=== PATIENT | male | born 1965 | race Caucasian/White ===

== ENCOUNTER 2024-01-21 02:01 | Inpatient (IN) | payer OTHER, SELFPAY ==
[2024-01-21] VITALS (116 sets, daily range): BP systolic 101–179; BP diastolic 64–108; PULSE 78–121; RESP 13–25; TEMP 36.1–37.4; O2SAT 93–100
--- NOTE | 2024-01-21 02:00 | RT.EKG_ITS ---
APPROVED REPORT Exam: Resting ECG Reason for Exam: lightheaded Patient Location: E HR:110 bpm ECG Measurements Heart Rate 110 AXIS OK 156 P 54 QRSd 99 QRS -36 QT 321 T 15 QTc 435 Conclusion Sinus tachycardia...rate> 99 Left axis deviation...QRS axis (-30,-90) appropriate intervals no ST segment or T wave abnormalities to suggest occlusive M
[2024-01-21 02:36] LABS: BE (Venous) -23 mmol/L (-2-3); HCO3 (Venous) 7 mmol/L (23-28); O2 Sat (Venous) 87 %; TCO2 (Venous) 7 mmol/L (24-29); pCO2 (Venous) 24 mmHg (41-51); pO2 (Venous) 56 mmHg
[2024-01-21 02:40] LABS: Abs Immature Grans 0.09 10^3/uL (0.0-0.06); HCT 48.6 % (40.0-50.0); HGB 16.3 g/dL (13.5-17.5); MCH 28.6 pg (27.0-33.0); MCHC 33.5 % (32.0-36.0); MCV 85 fL (80-95); MPV 8.9 fL (8.0-11.0); Platelet Count 331 10^3/uL (130-400); RDW 12.9 % (11.8-14.1); RDW-SD 39.8 fL; pH (Venous) 7.07 (7.31-7.41)
[2024-01-21] MEDS: Ondansetron 4 MG/2 ML VIAL IVP (02:42)
--- NOTE | 2024-01-21 02:45 | ED.GENADUL_ITS ---
Discharge Plan Disposition Patient Disposition: Admit to [facility] Condition: Critical Discharge Details Chief Complaint: GenMedical Clinical Impression: Ketoacidosis in patient with type 2 diabetes mellitus ED Provider: Patti Murillo Home Meds and New Rx's Prescriptions: No Action aspirin [Ecotrin Low Strength] 81 mg tablet,delayed release (DR/EC) 81 mg PO DAILY pantoprazole [Protonix] 40 mg tablet,delayed release (DR/EC) 40 mg PO DAILY lisinopril 20 mg tablet 20 mg PO DAILY atorvastatin 40 mg tablet 40 mg PO DAILY Rybelsus 7 mg tablet 14 mg PO DAILY glipizide-metformin 2.5-500 mg tablet 2 tab PO BID HPI General Mode of arrival: ambulatory . Date/Time Provider Initiated Documentation: 01/21/24 02:06 . Limitations to Documentation: no limitations . Information obtained by: patient . HPI Narrative: 58yo M with hx HTN, HLD, T2DM, presenting for feeling dehydrated. States he has been very very thirsty for the past 3-4 days. He has had about 2 days of vomiting and diffuse abdominal cramping. Non-bloody non-bilious emesis. He does think he has been keeping 'some' fluids down. He also feels generally fatigued and like it is 'difficult to think'. No fevers, chills, rash, chest pain, shortness of breath, dysuria, hematuria, or other concerns. Otherwise in his usual state of health. Related Data Home Medications ?Medication ?Instructions ?Recorded ?Confirmed aspirin 81 mg tablet,delayed 81 mg PO DAILY 01/21/24 01/21/24 release (Ecotrin Low Strength) atorvastatin 40 mg tablet 40 mg PO DAILY 01/21/24 01/21/24 glipizide 2.5 mg-metformin 500 mg 2 tab PO BID 01/21/24 01/21/24 tablet lisinopril 20 mg tablet 20 mg PO DAILY 01/21/24 01/21/24 pantoprazole 40 mg tablet,delayed 40 mg PO DAILY 01/21/24 01/21/24 release (Protonix) semaglutide 7 mg tablet (Rybelsus) 14 mg PO DAILY 01/21/24 01/21/24 Allergies Allergy/AdvReac Type Severity Reaction Status Date / Time No Known Drug Allergies Allergy Unknown Other (See Verified 01/21/24 02:11 Comment) General Stated Complaint: OD/Poison CESAR: 2 Review of Systems Narrative: see HPI Exam Narrative Exam Narrative: General: Alert, in no acute distress. Head: Normocephalic, atraumatic Neck: Trachea midline, ?Neck supple. ENT: ?Dry MM. Cardiac: ?Tachycardiac, regular, no murmurs appreciated Resp: No respiratory distress. CTAB. Abd: ?Soft, non-distended, nontender : ?No suprapubic tenderness. Extremities: ?No deformities.? No peripheral edema. Neurologic: GCS 15. ? Moves all extremities freely against gravity Course Vital Signs Vital signs: Vital Signs Temperature 36.1 C L 01/21/24 02:05 Pulse 121 H 01/21/24 02:05 Respiratory Rate 23 01/21/24 02:05 Blood Pressure 179/108 H 01/21/24 02:05 Pulse Oximetry 97 01/21/24 02:05 Temperature 36.1 C L 01/21/24 02:05 Temperature Source Temporal Artery Scan 01/21/24 02:05 Pulse 121 H 01/21/24 02:05 Respiratory Rate 21 01/21/24 02:13 Respiratory Effort Normal, Non-Labored 01/21/24 02:13 Respiratory Depth Normal 01/21/24 02:13 Respiratory Pattern Normal 01/21/24 02:13 Blood Pressure 179/108 H 01/21/24 02:05 Blood Pressure Position Sitting 01/21/24 02:05 Pulse Oximetry 97 01/21/24 02:05 Oxygen Delivery Method Room Air 01/21/24 02:05 Oxygen Flow Rate 0 01/21/24 02:05 Lab/Test Results Lab/Test Results: Laboratory Tests Range/Units 01/21/24 02:29 VBG pH (7.31-7.41) 7.07 L* VBG pCO2 (41-51) mmHg 24 L VBG pO2 mmHg 56 VBG HCO3 (23-28) mmol/L 7 L VBG Total CO2 (24-29) mmol/L 7 L VBG O2 Saturation % 87 VBG Base Excess (-2-3) mmol/L -23 L Medical Decision Making 58yo M with hx HTN, HLD, T2DM, presenting for feeling dehydrated and generally unwell. Has felt very thirsty for about 4 days, vomiting started about 2 days ago. Tachycardiac to 120 on arrival, vital signs otherwise reassuring. Afebrile and no infectious symptoms, unlikely sepsis. HR improved to low 100's a the time of assessment without intervention. EKG on arrival sinus tachycardia, appropriate intervals, no ST segment or T wave abnormalities to suggest occlusive [place]. Given IV zofran for nausea while awaiting results of workup. Labs reviewed as below: -VBG with metabolic acidosis with respiratory compensation, pH 7.07. Highly concerning for DKA; will start fluid resus with 1L NS. -CBC with mild leukocytosis at 13 (nonspecific) and no anemia, CMP with elevated anion gap 1t 27, normal Cr, K of 4.5, lactate normal, troponin normal, UA + for ketones and not suggestive of infection. Ethanol and acetaminophen negative, slightly elevated salicylate at 4.4 (pt does take baby aspirin daily, denies taking any additional ASA; unlikely cause of acidosis however will trend with repeat in 3 hours). Overall consistent with euglycemic DKA (glucose borderline at 247); pt denies SGLT-2 inhibitor use, some more atypical with unclear etiology. Denies any toxic alcohol ingestions. No clear provoking factor for DKA. Will start D5 NS c 20meQ of potassium as well as insulin drip. Discussed with [facility] hospitalist Dr. Joshua; pt accepted to medicine service for further workup and management. Bridging orders placed (admission & code status) at hospitalist's request. Patient awaiting transfer to the ICU. Lab Data Lab results reviewed: Yes I reviewed the patient's lab results. Labs: Laboratory Tests Range/Units 01/21/24 01/21/24 01/21/24 02:29 02:50 03:06 WBC (4.4-10.8) 10^3/uL 13.10 H RBC (4.36-5.78) 10^6/uL 5.70 Hgb (13.5-17.5) g/dL 16.3 Hct (40.0-50.0) % 48.6 MCV (80-95) fL 85 MCH (27.0-33.0) pg 28.6 MCHC (32.0-36.0) % 33.5 RDW (11.8-14.1) % 12.9 Plt Count (130-400) 10^3/uL 331 MPV (8.0-11.0) fL 8.9 Immature Gran % % 0.0 Neutrophils % % 84.0 Lymphocytes % % 8.0 Monocytes % % 7.0 Eosinophils % % 1.0 Basophils % % 0.0 Nucleated RBC % (0.0-0.3) % 0.0 Absolute Neutrophils (1.2-6.7) 10^3/uL 11.00 H Absolute Lymphocytes (1.2-3.4) 10^3/uL 1.05 L Absolute Monocytes (0.1-0.8) 10^3/uL 0.92 H Absolute Eosinophils (0.0-0.7) 10^3/uL 0.13 Absolute Basophils (0.0-0.2) 10^3/uL 0.00 RBC Morphology Normal VBG pH (7.31-7.41) 7.07 L* VBG pCO2 (41-51) mmHg 24 L VBG pO2 mmHg 56 VBG HCO3 (23-28) mmol/L 7 L VBG Total CO2 (24-29) mmol/L 7 L VBG O2 Saturation % 87 VBG Base Excess (-2-3) mmol/L -23 L VBG Lactate (0.6-1.4) mmol/L 1.3 Sodium Cancelled 135 L Potassium Cancelled 4.5 Chloride Cancelled 98 Carbon Dioxide Cancelled 9.7 L Anion Gap Cancelled 27.3 H BUN Cancelled 13 Creatinine Cancelled 1.1 Est GFR (CKD-EPI 2020) Cancelled 77.81 Glucose Cancelled 247 H Calcium Cancelled 10.5 H Phosphorus (2.6-4.7) mg/dL 5.1 H Magnesium Cancelled 2.0 Total Bilirubin Cancelled 0.52 AST Cancelled 17 ALT Cancelled 23 Alkaline Phosphatase Cancelled 89 Troponin I (<or=76) ng/L 6 Total Protein Cancelled 9.3 H Albumin Cancelled 5.0 Urine Color (Yellow) Yellow Urine Clarity (Clear) Clear Urine pH (5-8) 5.5 Ur Specific [place] (1.005-1.025) >= 1.030 H Urine Protein (Neg-Trace) mg/dL 30 H Urine Ketones (Negative) mg/dL 80 H Urine Blood (Negative) Trace-intact H Urine Nitrite (Negative) Negative Urine Bilirubin (Negative) Negative Urine Urobilinogen (Up to 0.2) mg/dL 0.2 Ur Leukocyte Esterase (Negative) Negative Urine RBC (0-2) HPF 3-5 H Urine WBC (0-5) HPF Negative Ur Epithelial Cells (Negative) HPF Rare Urine Crystals (Negative) HPF Negative Urine Bacteria (Negative) HPF Rare Urine Casts (Negative) LPF Negative Urine Mucus (Negative) Negative Ur Culture Indicated? No Urine Glucose (Negative) mg/dL 250 H Salicylates (<2.8) mg/dL 4.4 Acetaminophen (10-30) ug/mL < 2 Ethyl Alcohol (<10) mg/dL < 3.0 Range/Units 01/21/24 03:45 WBC (4.4-10.8) 10^3/uL RBC (4.36-5.78) 10^6/uL Hgb (13.5-17.5) g/dL Hct (40.0-50.0) % MCV (80-95) fL MCH (27.0-33.0) pg MCHC (32.0-36.0) % RDW (11.8-14.1) % Plt Count (130-400) 10^3/uL MPV (8.0-11.0) fL Immature Gran % % Neutrophils % % Lymphocytes % % Monocytes % % Eosinophils % % Basophils % % Nucleated RBC % (0.0-0.3) % Absolute Neutrophils (1.2-6.7) 10^3/uL Absolute Lymphocytes (1.2-3.4) 10^3/uL Absolute Monocytes (0.1-0.8) 10^3/uL Absolute Eosinophils (0.0-0.7) 10^3/uL Absolute Basophils (0.0-0.2) 10^3/uL RBC Morphology VBG pH (7.31-7.41) VBG pCO2 (41-51) mmHg VBG pO2 mmHg VBG HCO3 (23-28) mmol/L VBG Total CO2 (24-29) mmol/L VBG O2 Saturation % VBG Base Excess (-2-3) mmol/L VBG Lactate (0.6-1.4) mmol/L Sodium Cancelled Potassium Cancelled Chloride Cancelled Carbon Dioxide Cancelled Anion Gap Cancelled BUN Cancelled Creatinine Cancelled Est GFR (CKD-EPI 2020) Cancelled Glucose Cancelled Calcium Cancelled Phosphorus (2.6-4.7) mg/dL Magnesium Total Bilirubin AST ALT Alkaline Phosphatase Troponin I (<or=76) ng/L Total Protein Albumin Urine Color (Yellow) Urine Clarity (Clear) Urine pH (5-8) Ur Specific [place] (1.005-1.025) Urine Protein (Neg-Trace) mg/dL Urine Ketones (Negative) mg/dL Urine Blood (Negative) Urine Nitrite (Negative) Urine Bilirubin (Negative) Urine Urobilinogen (Up to 0.2) mg/dL Ur Leukocyte Esterase (Negative) Urine RBC (0-2) HPF Urine WBC (0-5) HPF Ur Epithelial Cells (Negative) HPF Urine Crystals (Negative) HPF Urine Bacteria (Negative) HPF Urine Casts (Negative) LPF Urine Mucus (Negative) Ur Culture Indicated? Urine Glucose (Negative) mg/dL Salicylates (<2.8) mg/dL Acetaminophen (10-30) ug/mL Ethyl Alcohol (<10) mg/dL Quality:[facility] Health Related Social Needs: No Data to Display Critical Care Time Critical Care Time Critical Care Time: Yes Total Critical Care Time: 31 Attestation: Due to a high probability of clinically significant, life threatening deterioration, the patient required my highest level of preparedness to intervene emergently and I personally spent this critical care time directly and personally managing the patient. This critical care time included obtaining a history; examining the patient; pulse oximetry; ordering and review of studies; arranging urgent treatment with development of a management plan; evaluation of patient's response to treatment; frequent reassessment; and, discussions with other providers. This critical care time was performed to assess and manage the high probability of imminent, life-threatening deterioration that could result in multi-organ failure. It was exclusive of separately billable procedures and treating other patients? PFSH All Active Problems (Updated 01/21/24 @ 05:04 by Patti Murillo MD) Ketoacidosis in patient with type 2 diabetes mellitus (Acute) Social History Smoking/Tobacco Use Status: Current-Occasional Tobacco Type: smokeless tobacco Smoking risk assessment performed?: Yes Alcohol Intake: current Alcohol Intake frequency: a few times a month Alcohol type: beer Drug use: Never Substance use type: does not use PAWSS Have you Been Recently Intoxicated or Drunk Within the Last 30 days?: No Have you Ever Experienced Previous Episodes of Alcohol Withdrawal?: No Have you ever Experienced Withdrawal Seizures?: No Have you ever Experienced Delirium Tremens(DT)s?: No Have you ever undergone Alcohol Rehabilitation Treatment (i.e, inpt ot outpatient treatment programs)?: No Have you ever Experienced Blackouts?: No Have you ever Combined Alcohol with other Downers within the last 90 days?: No Have you ever Combined Alcohol with any other Substance of Abuse during the last 90 days?: No Positive Blood Alcohol level on Presentation? [PCS.BAL]: No Evidence of Increased Autonomic Activity (i.e. HR>120, tremor, sweating, agita tion, nausea)?: No Result: 0
[2024-01-21 02:55] LABS: Bilirubin Negative (Negative); Blood Trace-intact (Negative); Clarity Clear (Clear); Glucose 250 mg/dL (Negative); Ketones 80 mg/dL (Negative); Leukocyte Esterase Negative (Negative); Nitrite Negative (Negative); Specific Gravity >= 1.030 (1.005-1.025); Urobilinogen 0.2 mg/dL (Up to 0.2); pH 5.5 (5-8)
[2024-01-21 02:56] LABS: Absolute Eosinophil Count 0.13 10^3/uL (0.0-0.7); Absolute Lymphocyte Count 1.05 10^3/uL (1.2-3.4); Absolute Monocyte Count 0.92 10^3/uL (0.1-0.8); Diff Comment Manual Differential; RBC Morphology Normal
[2024-01-21 02:59] LABS: Bacteria Rare HPF (Negative); C & S Indicated? No; Casts Negative LPF (Negative); Crystals Negative HPF (Negative); Epithelial Cells Rare HPF (Negative); Mucus Negative (Negative); WBC Negative HPF (0-5)
[2024-01-21] MEDS: Normal Saline 1,000 ML 1000 ML IV (03:02)
[2024-01-21 03:11] LABS: Lactate 1.3 mmol/L (0.6-1.4)
[2024-01-21 03:29] LABS: PHOSPHORUS 5.1 mg/dL (2.6-4.7)
[2024-01-21 03:31] LABS: ALT 23 U/L (16-63); AST 17 U/L (15-37); Alkaline Phosphatase 89 U/L (46-116); Anion Gap 27.3 mmol/L (3-11); BUN 13 mg/dL (7-18); Bilirubin, Total 0.52 mg/dL (0.2-1.0); CO2 9.7 mmol/L (21.0-32.0); CREATININE 1.1 mg/dL (0.70-1.30); Calcium 10.5 mg/dL (8.5-10.1); Chloride 98 mmol/L (98-107); Estimated GFR 77.81 (mL/min/1.73m2); Glucose 247 mg/dL (74-106); Potassium 4.5 mmol/L (3.5-5.1); Sodium 135 mmol/L (136-145); Total Protein 9.3 g/dL (6.4-8.2); Troponin I 6 ng/L (<or=76)
[2024-01-21] MEDS: Lactated Ringers 1,000 ML 1000 ML IV (04:05)
[2024-01-21 04:16] LABS: ETHANOL BLOOD < 3.0 mg/dL (<10)
[2024-01-21 04:18] LABS: Acetaminophen < 2 ug/mL (10-30); Salicylate 4.4 mg/dL (<2.8)
[2024-01-21] MEDS: INSULIN REGULAR IN 0.9 % NACL 100 UNIT/100 ML BAG IVINF (05:01)
[2024-01-21] MEDS: POTASSIUM CHLORIDE/D5-0.9%NACL 1,000 ML 150 MEQ IV ×2 (05:01→11:45)
[2024-01-21 05:26] LABS: Anion Gap 25.9 mmol/L (3-11); BUN 13 mg/dL (7-18); CO2 8.1 mmol/L (21.0-32.0); Chloride 103 mmol/L (98-107); Estimated GFR 87.24 (mL/min/1.73m2); Glucose 234 mg/dL (74-106); Potassium 4.6 mmol/L (3.5-5.1); Sodium 137 mmol/L (136-145)
--- NOTE | 2024-01-21 05:57 | W.PCEDHO ---
Registration Status: Primary Language: Preferred Language: ED Information & Data Chief Complaint OD/Poison 01/21/24 02:48 Triage Note Pt thinks he had a med 01/21/24 02:05 change ~1 week [employer]. Since then experiencing worsening nausea, vomiting, fatigue, difficulty focusing and light headed. Atorvastatin increased to 40mg and semaglutide increased to 14mg Most Recent Vital Signs Temperature 36.8 C 01/21/24 03:15 Temperature Source Temporal Artery Scan 01/21/24 03:15 Pulse 102 H 01/21/24 03:17 Pulse 105 H 01/21/24 03:30 Respiratory Rate 19 01/21/24 03:30 Respiratory Effort Normal, Non-Labored 01/21/24 03:15 Respiratory Depth Normal 01/21/24 03:15 Respiratory Pattern Normal 01/21/24 03:15 Blood Pressure 158/98 H 01/21/24 03:17 Blood Pressure Position Sitting 01/21/24 02:05 Pulse Oximetry 100 01/21/24 03:30 Oxygen Delivery Method Room Air 01/21/24 03:15 Oxygen Flow Rate 0 01/21/24 02:05 Pain Level 3 01/21/24 03:15 Allergies No Known Drug Allergies Allergy (Unknown, Verified 01/21/24 02:11) Other (See Comment) n/a Precautions Isolation Standard precaution 01/21/24 02:12 Active Medications Generic Name Dose Route Start Last Admin Trade Name Freq PRN Reason Stop Dose Admin Insulin Human Regular 100 unit in 100 mls @ 2 mls/hr 01/21/24 03:45 01/21/24 05:01 Myxredlin IVINF 2 unit/hr INFUSION TOY 2 mls/hr Administration Protocol 2 UNIT/HR Potassium Chloride/Dextrose/Sod Cl 1,000 mls @ 150 mls/hr 01/21/24 04:30 01/21/24 05:01 Kcl 20meq/D5-0.9% Nacl IV 150 mls/hr INFUSION TOY Administration IV IV Catheter Type [Left Wrist] Peripheral IV IV Catheter Type [Right Upper Peripheral IV arm] IV Catheter Type [Left Saline Lock Antecubital] IV Catheter Gauge [Left Wrist] 20 IV Catheter Gauge [Right Upper 18 arm] IV Catheter Gauge [Left 18 Antecubital] Diagnostics 01/21/24 01/21/24 01/21/24 Range/Units 23:45 21:45 19:45 WBC (4.4-10.8) 10^3/uL RBC (4.36-5.78) 10^6/uL Hgb (13.5-17.5) g/dL Hct (40.0-50.0) % MCV (80-95) fL MCH (27.0-33.0) pg MCHC (32.0-36.0) % RDW (11.8-14.1) % Plt Count (130-400) 10^3/uL MPV (8.0-11.0) fL Immature Gran % % Neutrophils % % Lymphocytes % % Monocytes % % Eosinophils % % Basophils % % Nucleated RBC % (0.0-0.3) % Absolute Neutrophils (1.2-6.7) 10^3/uL Absolute Lymphocytes (1.2-3.4) 10^3/uL Absolute Monocytes (0.1-0.8) 10^3/uL Absolute Eosinophils (0.0-0.7) 10^3/uL Absolute Basophils (0.0-0.2) 10^3/uL RBC Morphology VBG pH (7.31-7.41) VBG pCO2 (41-51) mmHg VBG pO2 mmHg VBG HCO3 (23-28) mmol/L VBG Total CO2 (24-29) mmol/L VBG O2 Saturation % VBG Base Excess (-2-3) mmol/L VBG Lactate (0.6-1.4) mmol/L Sodium Pending Pending Pending Potassium Pending Pending Pending Chloride Pending Pending Pending Carbon Dioxide Pending Pending Pending Anion Gap Pending Pending Pending BUN Pending Pending Pending Creatinine Pending Pending Pending Est GFR (CKD-EPI 2020) Pending Pending Pending Glucose Pending Pending Pending Serum Osmolality Calcium Pending Pending Pending Phosphorus (2.6-4.7) mg/dL Magnesium Total Bilirubin AST ALT Alkaline Phosphatase Troponin I (<or=76) ng/L Total Protein Albumin Urine Color (Yellow) Urine Clarity (Clear) Urine pH (5-8) Ur Specific [place]ner (1.005-1.025) Urine Protein (Neg-Trace) mg/dL Urine Ketones (Negative) mg/dL Urine Blood (Negative) Urine Nitrite (Negative) Urine Bilirubin (Negative) Urine Urobilinogen (Up to 0.2) mg/dL Ur Leukocyte Esterase (Negative) Urine RBC (0-2) HPF Urine WBC (0-5) HPF Ur Epithelial Cells (Negative) HPF Urine Crystals (Negative) HPF Urine Bacteria (Negative) HPF Urine Casts (Negative) LPF Urine Mucus (Negative) Ur Culture Indicated? Urine Glucose (Negative) mg/dL Salicylates (<2.8) mg/dL Acetaminophen (10-30) ug/mL Ethyl Alcohol (<10) mg/dL COVID-19 Source SARS-CoV-2 (PCR) Influenza Type A (PCR) Influenza Type B (PCR) RSV (PCR) 01/21/24 01/21/24 01/21/24 Range/Units 17:45 15:45 13:45 WBC (4.4-10.8) 10^3/uL RBC (4.36-5.78) 10^6/uL Hgb (13.5-17.5) g/dL Hct (40.0-50.0) % MCV (80-95) fL MCH (27.0-33.0) pg MCHC (32.0-36.0) % RDW (11.8-14.1) % Plt Count (130-400) 10^3/uL MPV (8.0-11.0) fL Immature Gran % % Neutrophils % % Lymphocytes % % Monocytes % % Eosinophils % % Basophils % % Nucleated RBC % (0.0-0.3) % Absolute Neutrophils (1.2-6.7) 10^3/uL Absolute Lymphocytes (1.2-3.4) 10^3/uL Absolute Monocytes (0.1-0.8) 10^3/uL Absolute Eosinophils (0.0-0.7) 10^3/uL Absolute Basophils (0.0-0.2) 10^3/uL RBC Morphology VBG pH (7.31-7.41) VBG pCO2 (41-51) mmHg VBG pO2 mmHg VBG HCO3 (23-28) mmol/L VBG Total CO2 (24-29) mmol/L VBG O2 Saturation % VBG Base Excess (-2-3) mmol/L VBG Lactate (0.6-1.4) mmol/L Sodium Pending Pending Pending Potassium Pending Pending Pending Chloride Pending Pending Pending Carbon Dioxide Pending Pending Pending Anion Gap Pending Pending Pending BUN Pending Pending Pending Creatinine Pending Pending Pending Est GFR (CKD-EPI 2020) Pending Pending Pending Glucose Pending Pending Pending Serum Osmolality Calcium Pending Pending Pending Phosphorus (2.6-4.7) mg/dL Magnesium Total Bilirubin AST ALT Alkaline Phosphatase Troponin I (<or=76) ng/L Total Protein Albumin Urine Color (Yellow) Urine Clarity (Clear) Urine pH (5-8) Ur Specific [place]ner (1.005-1.025) Urine Protein (Neg-Trace) mg/dL Urine Ketones (Negative) mg/dL Urine Blood (Negative) Urine Nitrite (Negative) Urine Bilirubin (Negative) Urine Urobilinogen (Up to 0.2) mg/dL Ur Leukocyte Esterase (Negative) Urine RBC (0-2) HPF Urine WBC (0-5) HPF Ur Epithelial Cells (Negative) HPF Urine Crystals (Negative) HPF Urine Bacteria (Negative) HPF Urine Casts (Negative) LPF Urine Mucus (Negative) Ur Culture Indicated? Urine Glucose (Negative) mg/dL Salicylates (<2.8) mg/dL Acetaminophen (10-30) ug/mL Ethyl Alcohol (<10) mg/dL COVID-19 Source SARS-CoV-2 (PCR) Influenza Type A (PCR) Influenza Type B (PCR) RSV (PCR) 01/21/24 01/21/24 01/21/24 Range/Units 11:45 09:45 07:45 WBC (4.4-10.8) 10^3/uL RBC (4.36-5.78) 10^6/uL Hgb (13.5-17.5) g/dL Hct (40.0-50.0) % MCV (80-95) fL MCH (27.0-33.0) pg MCHC (32.0-36.0) % RDW (11.8-14.1) % Plt Count (130-400) 10^3/uL MPV (8.0-11.0) fL Immature Gran % % Neutrophils % % Lymphocytes % % Monocytes % % Eosinophils % % Basophils % % Nucleated RBC % (0.0-0.3) % Absolute Neutrophils (1.2-6.7) 10^3/uL Absolute Lymphocytes (1.2-3.4) 10^3/uL Absolute Monocytes (0.1-0.8) 10^3/uL Absolute Eosinophils (0.0-0.7) 10^3/uL Absolute Basophils (0.0-0.2) 10^3/uL RBC Morphology VBG pH (7.31-7.41) VBG pCO2 (41-51) mmHg VBG pO2 mmHg VBG HCO3 (23-28) mmol/L VBG Total CO2 (24-29) mmol/L VBG O2 Saturation % VBG Base Excess (-2-3) mmol/L VBG Lactate (0.6-1.4) mmol/L Sodium Pending Pending Pending Potassium Pending Pending Pending Chloride Pending Pending Pending Carbon Dioxide Pending Pending Pending Anion Gap Pending Pending Pending BUN Pending Pending Pending Creatinine Pending Pending Pending Est GFR (CKD-EPI 2020) Pending Pending Pending Glucose Pending Pending Pending Serum Osmolality Calcium Pending Pending Pending Phosphorus (2.6-4.7) mg/dL Magnesium Total Bilirubin AST ALT Alkaline Phosphatase Troponin I (<or=76) ng/L Total Protein Albumin Urine Color (Yellow) Urine Clarity (Clear) Urine pH (5-8) Ur Specific [place] (1.005-1.025) Urine Protein (Neg-Trace) mg/dL Urine Ketones (Negative) mg/dL Urine Blood (Negative) Urine Nitrite (Negative) Urine Bilirubin (Negative) Urine Urobilinogen (Up to 0.2) mg/dL Ur Leukocyte Esterase (Negative) Urine RBC (0-2) HPF Urine WBC (0-5) HPF Ur Epithelial Cells (Negative) HPF Urine Crystals (Negative) HPF Urine Bacteria (Negative) HPF Urine Casts (Negative) LPF Urine Mucus (Negative) Ur Culture Indicated? Urine Glucose (Negative) mg/dL Salicylates (<2.8) mg/dL Acetaminophen (10-30) ug/mL Ethyl Alcohol (<10) mg/dL COVID-19 Source SARS-CoV-2 (PCR) Influenza Type A (PCR) Influenza Type B (PCR) RSV (PCR) 01/21/24 01/21/24 01/21/24 Range/Units 06:00 05:08 04:31 WBC (4.4-10.8) 10^3/uL RBC (4.36-5.78) 10^6/uL Hgb (13.5-17.5) g/dL Hct (40.0-50.0) % MCV (80-95) fL MCH (27.0-33.0) pg MCHC (32.0-36.0) % RDW (11.8-14.1) % Plt Count (130-400) 10^3/uL MPV (8.0-11.0) fL Immature Gran % % Neutrophils % % Lymphocytes % % Monocytes % % Eosinophils % % Basophils % % Nucleated RBC % (0.0-0.3) % Absolute Neutrophils (1.2-6.7) 10^3/uL Absolute Lymphocytes (1.2-3.4) 10^3/uL Absolute Monocytes (0.1-0.8) 10^3/uL Absolute Eosinophils (0.0-0.7) 10^3/uL Absolute Basophils (0.0-0.2) 10^3/uL RBC Morphology VBG pH (7.31-7.41) VBG pCO2 (41-51) mmHg VBG pO2 mmHg VBG HCO3 (23-28) mmol/L VBG Total CO2 (24-29) mmol/L VBG O2 Saturation % VBG Base Excess (-2-3) mmol/L VBG Lactate (0.6-1.4) mmol/L Sodium 137 Potassium 4.6 Chloride 103 Carbon Dioxide 8.1 L Anion Gap 25.9 H BUN 13 Creatinine 1.0 Est GFR (CKD-EPI 2020) 87.24 Glucose 234 H Serum Osmolality Pending Calcium 9.0 Phosphorus (2.6-4.7) mg/dL Magnesium Total Bilirubin AST ALT Alkaline Phosphatase Troponin I (<or=76) ng/L Total Protein Albumin Urine Color (Yellow) Urine Clarity (Clear) Urine pH (5-8) Ur Specific [place] (1.005-1.025) Urine Protein (Neg-Trace) mg/dL Urine Ketones (Negative) mg/dL Urine Blood (Negative) Urine Nitrite (Negative) Urine Bilirubin (Negative) Urine Urobilinogen (Up to 0.2) mg/dL Ur Leukocyte Esterase (Negative) Urine RBC (0-2) HPF Urine WBC (0-5) HPF Ur Epithelial Cells (Negative) HPF Urine Crystals (Negative) HPF Urine Bacteria (Negative) HPF Urine Casts (Negative) LPF Urine Mucus (Negative) Ur Culture Indicated? Urine Glucose (Negative) mg/dL Salicylates Pending (<2.8) mg/dL Acetaminophen (10-30) ug/mL Ethyl Alcohol (<10) mg/dL COVID-19 Source Pending SARS-CoV-2 (PCR) Pending Influenza Type A (PCR) Pending Influenza Type B (PCR) Pending RSV (PCR) Pending 01/21/24 01/21/24 01/21/24 Range/Units 03:45 03:06 02:50 WBC (4.4-10.8) 10^3/uL RBC (4.36-5.78) 10^6/uL Hgb (13.5-17.5) g/dL Hct (40.0-50.0) % MCV (80-95) fL MCH (27.0-33.0) pg MCHC (32.0-36.0) % RDW (11.8-14.1) % Plt Count (130-400) 10^3/uL MPV (8.0-11.0) fL Immature Gran % % Neutrophils % % Lymphocytes % % Monocytes % % Eosinophils % % Basophils % % Nucleated RBC % (0.0-0.3) % Absolute Neutrophils (1.2-6.7) 10^3/uL Absolute Lymphocytes (1.2-3.4) 10^3/uL Absolute Monocytes (0.1-0.8) 10^3/uL Absolute Eosinophils (0.0-0.7) 10^3/uL Absolute Basophils (0.0-0.2) 10^3/uL RBC Morphology VBG pH (7.31-7.41) VBG pCO2 (41-51) mmHg VBG pO2 mmHg VBG HCO3 (23-28) mmol/L VBG Total CO2 (24-29) mmol/L VBG O2 Saturation % VBG Base Excess (-2-3) mmol/L VBG Lactate 1.3 (0.6-1.4) mmol/L Sodium Cancelled 135 L Potassium Cancelled 4.5 Chloride Cancelled 98 Carbon Dioxide Cancelled 9.7 L Anion Gap Cancelled 27.3 H BUN Cancelled 13 Creatinine Cancelled 1.1 Est GFR (CKD-EPI 2021) Cancelled 77.81 Glucose Cancelled 247 H Serum Osmolality Calcium Cancelled 10.5 H Phosphorus 5.1 H (2.6-4.7) mg/dL Magnesium 2.0 Total Bilirubin 0.52 AST 17 ALT 23 Alkaline Phosphatase 89 Troponin I 6 (<or=76) ng/L Total Protein 9.3 H Albumin 5.0 Urine Color Yellow (Yellow) Urine Clarity Clear (Clear) Urine pH 5.5 (5-8) Ur Specific [place] >= 1.030 H (1.005-1.025) Urine Protein 30 H (Neg-Trace) mg/dL Urine Ketones 80 H (Negative) mg/dL Urine Blood Trace-intact H (Negative) Urine Nitrite Negative (Negative) Urine Bilirubin Negative (Negative) Urine Urobilinogen 0.2 (Up to 0.2) mg/dL Ur Leukocyte Esterase Negative (Negative) Urine RBC 3-5 H (0-2) HPF Urine WBC Negative (0-5) HPF Ur Epithelial Cells Rare (Negative) HPF Urine Crystals Negative (Negative) HPF Urine Bacteria Rare (Negative) HPF Urine Casts Negative (Negative) LPF Urine Mucus Negative (Negative) Ur Culture Indicated? No Urine Glucose 250 H (Negative) mg/dL Salicylates 4.4 (<2.8) mg/dL Acetaminophen < 2 (10-30) ug/mL Ethyl Alcohol < 3.0 (<10) mg/dL COVID-19 Source SARS-CoV-2 (PCR) Influenza Type A (PCR) Influenza Type B (PCR) RSV (PCR) 01/21/24 Range/Units 02:29 WBC 13.10 H (4.4-10.8) 10^3/uL RBC 5.70 (4.36-5.78) 10^6/uL Hgb 16.3 (13.5-17.5) g/dL Hct 48.6 (40.0-50.0) % MCV 85 (80-95) fL MCH 28.6 (27.0-33.0) pg MCHC 33.5 (32.0-36.0) % RDW 12.9 (11.8-14.1) % Plt Count 331 (130-400) 10^3/uL MPV 8.9 (8.0-11.0) fL Immature Gran % 0.0 % Neutrophils % 84.0 % Lymphocytes % 8.0 % Monocytes % 7.0 % Eosinophils % 1.0 % Basophils % 0.0 % Nucleated RBC % 0.0 (0.0-0.3) % Absolute Neutrophils 11.00 H (1.2-6.7) 10^3/uL Absolute Lymphocytes 1.05 L (1.2-3.4) 10^3/uL Absolute Monocytes 0.92 H (0.1-0.8) 10^3/uL Absolute Eosinophils 0.13 (0.0-0.7) 10^3/uL Absolute Basophils 0.00 (0.0-0.2) 10^3/uL RBC Morphology Normal VBG pH 7.07 L* (7.31-7.41) VBG pCO2 24 L (41-51) mmHg VBG pO2 56 mmHg VBG HCO3 7 L (23-28) mmol/L VBG Total CO2 7 L (24-29) mmol/L VBG O2 Saturation 87 % VBG Base Excess -23 L (-2-3) mmol/L VBG Lactate (0.6-1.4) mmol/L Sodium Cancelled Potassium Cancelled Chloride Cancelled Carbon Dioxide Cancelled Anion Gap Cancelled BUN Cancelled Creatinine Cancelled Est GFR (CKD-EPI 2020) Cancelled Glucose Cancelled Serum Osmolality Calcium Cancelled Phosphorus (2.6-4.7) mg/dL Magnesium Cancelled Total Bilirubin Cancelled AST Cancelled ALT Cancelled Alkaline Phosphatase Cancelled Troponin I (<or=76) ng/L Total Protein Cancelled Albumin Cancelled Urine Color (Yellow) Urine Clarity (Clear) Urine pH (5-8) Ur Specific [place] (1.005-1.025) Urine Protein (Neg-Trace) mg/dL Urine Ketones (Negative) mg/dL Urine Blood (Negative) Urine Nitrite (Negative) Urine Bilirubin (Negative) Urine Urobilinogen (Up to 0.2) mg/dL Ur Leukocyte Esterase (Negative) Urine RBC (0-2) HPF Urine WBC (0-5) HPF Ur Epithelial Cells (Negative) HPF Urine Crystals (Negative) HPF Urine Bacteria (Negative) HPF Urine Casts (Negative) LPF Urine Mucus (Negative) Ur Culture Indicated? Urine Glucose (Negative) mg/dL Salicylates (<2.8) mg/dL Acetaminophen (10-30) ug/mL Ethyl Alcohol (<10) mg/dL COVID-19 Source SARS-CoV-2 (PCR) Influenza Type A (PCR) Influenza Type B (PCR) RSV (PCR) [id number] Documentation Fingerstick Glucose Start: 01/21/24 02:19 Freq: Status: Complete Protocol: Activity Type Activity Date Activity User E-sign Co-sign Detail Recorded Client Recorded Date Recorded By Document 01/21/24 02:18 BKG DAEMON(10) [id number] 01/21/24 02:19 BKG DAEMON(10) Fingerstick Glucose Start: 01/21/24 03:39 Freq: .Q1H Status: Active Protocol: Activity Type Activity Date Activity User E-sign Co-sign Detail Recorded Client Recorded Date Recorded By Document 01/21/24 05:07 BKG DAEMON(10) [id number] 01/21/24 05:18 BKG DAEMON(10) Intake and Output - 24 Hour Total 01/21/24 02:01 thru 01/21/24 05:45 Intake Total 2019 Output Total 1000 Balance 1020 Weight 97.522 kg Intake: IV 2019 Output: Urine 1000 Other: # Voids 1 Falls Risk Assessment History of Falls No History 01/21/24 02:13 Contributing Factors No Factors 01/21/24 02:13 Ambulatory Aids Independent 01/21/24 02:13 Tubes/Lines None 01/21/24 02:13 Gait Evaluation No gait disturbance 01/21/24 02:13 Cognition No cognitive impairment 01/21/24 02:13 Fall Total Score 0 01/21/24 02:13 Level of Risk Standard/Low Risk 01/21/24 02:13 v v v v v v v v v Sending and/or Receiving Nurses: Please use comment section below to note any information pertinent to the patient hand-off not included above. Information / Comments: Report received from: Sanna Silva RN
--- NOTE | 2024-01-21 06:09 | HPE_ITS ---
Date of service: 01/21/24 Time of Service: 06:09 Assessment and Plan Assessment and plan (1) Ketoacidosis in patient with type 2 diabetes mellitus: Start date: 01/21/24 Status: Acute Assessment and plan: This is a 58-year-old gentleman who had sudden onset of abdominal symptoms with abdominal cramping, nausea and vomiting but polydipsia but no mention of polyuria. He has known diabetes on oral therapy with recent changes in his Rybelsus to maximum dose because of his hemoglobin A1c increasing to 9. He is not opposed to injectables. He presented to the ED and was found to be in DKA with no severe hyperglycemia. He is being treated for DKA in the ICU with Lucas protocol. Long-term treatment plan may need to include basal insulin and consider switching to injectable GLP-1 agonist. His usual oral outpatient medication will be held during his hospital stay. He is a full code. (2) HTN (hypertension): Status: Chronic Assessment and plan: Continue outpatient medical therapy adjusting as needed. (3) Hyperlipidemia: Status: Chronic Assessment and plan: Continue outpatient medical therapy. (4) GERD (gastroesophageal reflux disease): Status: Chronic Assessment and plan: Continue outpatient medical therapy. He he continued 1 History of Present Illness History of Present Illness Chief Complaint: Very, very thirsty for several days with N/V and diffuse abdominal cramping Narrative: This is a 58-year-old male patient who has a history of hypertension, hyperlipidemia, GERD and type 2 diabetes melitis on oral therapy who presents with a several day history of fluid loss, feeling very thirsty and having diffuse abdominal cramping. He denies any diarrhea. He has recently had his medication changed with Rybelsus increased to maximum dose and Lipitor doubled because of elevation in his hemoglobin A1c around 9. His usual hemoglobin A1c is in the 7 range. He denies any fever or chills, though he has felt warm and cold intermittently for the last couple weeks with the medication changes. As stated, he does complain of polydipsia but not necessarily polyuria denies or respiratory complaints. His emesis was nonbloody and he has had some sips of fluid but minimally. He feels very dry. He reported to ED because of the symptoms was found to have DKA with initial IV fluid resuscitation and now on Lucas protocol with regular insulin infusion and continued IV fluid resuscitation for his acidosis and elevated anion gap. His WBC was slightly elevated and no imaging was done in the ED. Patient will be admitted to the ICU for continued DKA protocol. He did not have severe hyperglycemia at this time. His symptoms were reminiscent of converting to type 1 diabetes. He is a full code. Review of Systems Narrative: 13 point review of systems otherwise unrevealing or stable. PFSH All Active Problems (Updated 01/21/24 @ 07:01 by Kannan Sears) GERD (gastroesophageal reflux disease) (Chronic) Hyperlipidemia (Chronic) HTN (hypertension) (Chronic) Ketoacidosis in patient with type 2 diabetes mellitus (Acute) Social History Smoking/Tobacco Use Status: Current-Occasional Tobacco Type: smokeless tobacco Smoking risk assessment performed?: Yes Alcohol Intake: current Alcohol Intake frequency: a few times a month Alcohol type: beer Drug use: Never Substance use type: does not use Housing: house Meds Allergies and Home Medications Allergies Allergy/AdvReac Type Severity Reaction Status Date / Time No Known Drug Allergies Allergy Unknown Other (See Verified 01/21/24 02:11 Comment) Home Medications ?Medication ?Instructions ?Recorded ?Confirmed ?Type aspirin 81 mg tablet,delayed 81 mg PO DAILY 01/21/24 01/21/24 History release (Ecotrin Low Strength) atorvastatin 40 mg tablet 40 mg PO DAILY 01/21/24 01/21/24 History empagliflozin 25 mg tablet 25 mg PO DAILY 01/21/24 01/21/24 History (Jardiance) glipizide 2.5 mg-metformin 500 mg 2 tab PO BID 01/21/24 01/21/24 History tablet lisinopril 20 mg tablet 20 mg PO DAILY 01/21/24 01/21/24 History pantoprazole 40 mg tablet,delayed 40 mg PO DAILY 01/21/24 01/21/24 History release (Protonix) semaglutide 7 mg tablet (Rybelsus) 14 mg PO DAILY 01/21/24 01/21/24 History Exam Narrative Exam Narrative: General: Patient appears appropriate for age, moderately obese over his abdomen, in moderate distress from his nausea alert and oriented x 3. HEENT: Normocephalic, eyes with pupils equal and reactive to light symmetrically, extraocular movement intact and sclera anicteric. Oropharynx with dry mucosa and fair dentition. Neck: Supple without JVD. Back: Stooped posture without CVA tenderness. Lungs: Clear to auscultation percussion with no focalizing rales or rhonchi, clear vesicular breath sounds. Heart: Tachycardic rate with regular rhythm. No murmurs gallops appreciated. Abdomen: Obese contour, soft and nontender to palpation with no focalizing guarding or rebound. No palpable hepatosplenomegaly. Bowel sounds positive though decreased in all quadrants. Genitalia/rectal: Exam deferred. Extremities: Without clubbing, cyanosis or pitting edema. Skin: Normal color, warm and dry. Neuro: Cranial nerves II through XII intact, no focalized motor deficits and no tremor. Psych: Normal affect and mood. No abnormal thought processes. Remote and recent memory intact. Results Imaging Imaging Studies: No imaging indicated at this time. Labs 01/21/24 02:29 01/21/24 11:25 Labs: Laboratory Results - last 24 hr 01/21/24 01/21/24 01/21/24 02:29 02:50 03:06 WBC 13.10 H RBC 5.70 Hgb 16.3 Hct 48.6 MCV 85 MCH 28.6 MCHC 33.5 RDW 12.9 Plt Count 331 MPV 8.9 Immature Gran % 0.0 Neutrophils % 84.0 Lymphocytes % 8.0 Monocytes % 7.0 Eosinophils % 1.0 Basophils % 0.0 Nucleated RBC % 0.0 Absolute Neutrophils 11.00 H Absolute Lymphocytes 1.05 L Absolute Monocytes 0.92 H Absolute Eosinophils 0.13 Absolute Basophils 0.00 RBC Morphology Normal VBG pH 7.07 L* VBG pCO2 24 L VBG pO2 56 VBG HCO3 7 L VBG Total CO2 7 L VBG O2 Saturation 87 VBG Base Excess -23 L VBG Lactate 1.3 Sodium Cancelled 135 L Potassium Cancelled 4.5 Chloride Cancelled 98 Carbon Dioxide Cancelled 9.7 L Anion Gap Cancelled 27.3 H BUN Cancelled 13 Creatinine Cancelled 1.1 Est GFR (CKD-EPI 2020) Cancelled 77.81 Glucose Cancelled 247 H Calcium Cancelled 10.5 H Phosphorus 5.1 H Magnesium Cancelled 2.0 Total Bilirubin Cancelled 0.52 AST Cancelled 17 ALT Cancelled 23 Alkaline Phosphatase Cancelled 89 Troponin I 6 Total Protein Cancelled 9.3 H Albumin Cancelled 5.0 Urine Color Yellow Urine Clarity Clear Urine pH 5.5 Ur Specific [place] >= 1.030 H Urine Protein 30 H Urine Ketones 80 H Urine Blood Trace-intact H Urine Nitrite Negative Urine Bilirubin Negative Urine Urobilinogen 0.2 Ur Leukocyte Esterase Negative Urine RBC 3-5 H Urine WBC Negative Ur Epithelial Cells Rare Urine Crystals Negative Urine Bacteria Rare Urine Casts Negative Urine Mucus Negative Ur Culture Indicated? No Urine Glucose 250 H Salicylates 4.4 Acetaminophen < 2 Ethyl Alcohol < 3.0 01/21/24 01/21/24 03:45 05:08 WBC RBC Hgb Hct MCV MCH MCHC RDW Plt Count MPV Immature Gran % Neutrophils % Lymphocytes % Monocytes % Eosinophils % Basophils % Nucleated RBC % Absolute Neutrophils Absolute Lymphocytes Absolute Monocytes Absolute Eosinophils Absolute Basophils RBC Morphology VBG pH VBG pCO2 VBG pO2 VBG HCO3 VBG Total CO2 VBG O2 Saturation VBG Base Excess VBG Lactate Sodium Cancelled 137 Potassium Cancelled 4.6 Chloride Cancelled 103 Carbon Dioxide Cancelled 8.1 L Anion Gap Cancelled 25.9 H BUN Cancelled 13 Creatinine Cancelled 1.0 Est GFR (CKD-EPI 2020) Cancelled 87.24 Glucose Cancelled 234 H Calcium Cancelled 9.0 Phosphorus Magnesium Total Bilirubin AST ALT Alkaline Phosphatase Troponin I Total Protein Albumin Urine Color Urine Clarity Urine pH Ur Specific [place] Urine Protein Urine Ketones Urine Blood Urine Nitrite Urine Bilirubin Urine Urobilinogen Ur Leukocyte Esterase Urine RBC Urine WBC Ur Epithelial Cells Urine Crystals Urine Bacteria Urine Casts Urine Mucus Ur Culture Indicated? Urine Glucose Salicylates Acetaminophen Ethyl Alcohol Last Vital Signs Temp 36.8 C 01/21/24 03:15 Pulse 102 H 01/21/24 03:17 Resp 19 01/21/24 03:30 BP 158/98 H 01/21/24 03:17 Pulse Ox 100 01/21/24 03:30 PAWSS Have you Been Recently Intoxicated or Drunk Within the Last 30 days?: No Have you Ever Experienced Previous Episodes of Alcohol Withdrawal?: No Have you ever Experienced Withdrawal Seizures?: No Have you ever Experienced Delirium Tremens(DT)s?: No Have you ever undergone Alcohol Rehabilitation Treatment (i.e, inpt ot outpatient treatment programs)?: No Have you ever Experienced Blackouts?: No Have you ever Combined Alcohol with other Downers within the last 90 days?: No Have you ever Combined Alcohol with any other Substance of Abuse during the last 90 days?: No Positive Blood Alcohol level on Presentation? [PCS.BAL]: No Evidence of Increased Autonomic Activity (i.e. HR>120, tremor, sweating, agitation, nausea)?: No Result: 0 Time Spent Time spent with Patient: >75 minutes Time was spent: preparing to see the patient(eg.review tests), obtaining and/or reviewing separately otained hiistory, ordering medications,tests, procedures, indepentently interpreting results, counseling the patient and care coordination
[2024-01-21 06:46] LABS: Salicylate 3.3 mg/dL (<2.8)
[2024-01-21 06:53] LABS: COVID-19 PCR Negative (Negative); Influenza A PCR Negative (Negative); Influenza B PCR Negative (Negative); RSV PCR Negative (Negative)
[2024-01-21 07:05] LABS: Source Nasopharynx
[2024-01-21 07:37] LABS: Anion Gap 21.8 mmol/L (3-11); BUN 13 mg/dL (7-18); CO2 11.2 mmol/L (21.0-32.0); CREATININE 1.1 mg/dL (0.70-1.30); Chloride 105 mmol/L (98-107); Estimated GFR 77.81 (mL/min/1.73m2); Glucose 235 mg/dL (74-106); Potassium 4.2 mmol/L (3.5-5.1); Sodium 138 mmol/L (136-145)
[2024-01-21 07:59] LABS: Magnesium 1.9 mg/dL (1.8-2.4)
[2024-01-21] MEDS: Enoxaparin 40 MG/0.4 ML SYR SC (08:23)
[2024-01-21] MEDS: Normal Saline Flush 10 ML SYR IVP ×2 (08:26→20:32)
[2024-01-21] MEDS: Lisinopril 20 MG TAB PO (08:27)
[2024-01-21] MEDS: Aspirin E.C. 81 MG TABEC PO (08:27)
[2024-01-21] MEDS: Atorvastatin 40 MG TAB PO (08:27)
[2024-01-21 09:49] LABS: Anion Gap 18.7 mmol/L (3-11); BUN 11 mg/dL (7-18); CO2 12.3 mmol/L (21.0-32.0); CREATININE 1.1 mg/dL (0.70-1.30); Calcium 8.9 mg/dL (8.5-10.1); Chloride 107 mmol/L (98-107); Estimated GFR 77.81 (mL/min/1.73m2); Glucose 251 mg/dL (74-106); Potassium 3.9 mmol/L (3.5-5.1); Sodium 138 mmol/L (136-145)
--- NOTE | 2024-01-21 10:03 | PDOC.CMIN ---
Date of service: 01/21/24 Time of Service: 10:03 Care Management Initial Assmt Initial Assessment Reason for Hospitalization: DKA Functional Status/Living Situation Patient Presentation: Kevon is being closely monitored and treated for DKA in the ICU. He still feels very weak and reports that his GI symptoms are improved. He lives in [place] and is in town visiting family. He is planning on returning home and following up locally when he's medically ready to discharge. Town of Residence: [facility] Resides with: Spouse Significant Other/Family: Local Caregiver/Guardian: None Natural Supports: Joseph and Dawit Instrumental Activities of Daily Living (ADLs): Independent Medications Medication Management: No Issues/Barriers identified Physical Functioning/Mobility Assistive Device: None Advance Directives Advance Directives: Do you have an Advance Directive: AD On File at [facility]: Date Asked AD Date Reviewed COLST On File at [facility] COLST Date Scanned Code Status Resuscitation Status Full Code Portal Pt does not currently have a portal and education provided: Yes Insurance Coverage/Financial Issues Insurance: Potential (NOT [address]) Financial Issues: None identified Care Team Visit Care Team Role Provider Type Local No Primary Care Provider [facility] STAFF PHYSICIAN Patti Murillo MD Emergency Provider [facility] STAFF PHYSICIAN Kannan Sears Admit Provider NON-[facility] STAFF PHYSICIAN Attending Provider Discharge Potential Discharge Needs: PCP F/U Appt Anticipated Barriers to Discharge: Medical Status Patient/Family Education Needs: Review discharge instructions, discuss Ask Me Three Transportation: Private vehicle Plan: Discharge home via private vehicle with family when medically ready to discharge. Follow up with local providers and discharge plan of care as instructed. He would like his medical info sent to his PCP in [place] (info in chart is updated). No new services are ordered prior to discharge. CM will follow. PFSH All Active Problems (Updated 01/21/24 @ 07:01 by Kannan Sears) GERD (gastroesophageal reflux disease) (Chronic) Hyperlipidemia (Chronic) HTN (hypertension) (Chronic) Ketoacidosis in patient with type 2 diabetes mellitus (Acute) Social History Smoking/Tobacco Use Status: Current-Occasional Tobacco Type: smokeless tobacco Smoking risk assessment performed?: Yes Alcohol Intake: current Alcohol Intake frequency: a few times a month Alcohol type: beer Drug use: Never Substance use type: does not use Housing: house SDOH(Care Management) Screening Will the Patient Participate in the Screening?: Yes Do you worry about having a steady place to live?: no In the past 12 months, have you had to go without electric, gas, oil or water in your home?: no Have you or anyone in your house had to go without enough food to eat?: no Has lack of transportation kept you from medical appointments or from doing things needed for daily living?: no Has anyone in your support network made you feel unsafe for any reason?: no
[2024-01-21] MEDS: Pantoprazole 40 MG VIAL IVP (10:12)
--- NOTE | 2024-01-21 10:42 | PHA.REVIEW2 ---
Pharmacy Admission Review Admission Clinical Review Admission Pharmacy Review: Ketoacidosis in patient with type 2 diabetes mellitus (Acute) No Known Drug Allergies Allergy (Unknown, Verified 01/21/24 02:11) Other (See Comment) Resuscitation Status Full Code Height 5 ft 10 in Weight 94.4 kg Comments Comments/Follow Ups: Check with provider tomorrow about IV to PO ondansetron Pharmacy Admission Review Renal Dosing Renal Dosing: BUN 11 mg/dL (7-18) 01/21/24 09:15 Creatinine 1.1 mg/dL (0.70-1.30) 01/21/24 09:15 Medications needing adjustments: Reviewed (CrCl 84.4 mL/min) List of meds needing interventions: Current medications are okay Anticoagulation Anticoagulation: Hgb 16.3 g/dL (13.5-17.5) 01/21/24 02:29 Hct 48.6 % (40.0-50.0) 01/21/24 02:29 Plt Count 331 10^3/uL (130-400) 01/21/24 02:29 Creatinine 1.1 mg/dL (0.70-1.30) 01/21/24 09:15 DVT Prophylaxis: Reviewed Medications: Enoxaparin (40mg daily) Relevant Labs Relevant Labs: Sodium 138 mmol/L (136-145) 01/21/24 09:15 Potassium 3.9 mmol/L (3.5-5.1) 01/21/24 09:15 Chloride 107 mmol/L (98-107) 01/21/24 09:15 Phosphorus 5.1 mg/dL (2.6-4.7) H 01/21/24 03:06 Magnesium 1.9 mg/dL (1.8-2.4) 01/21/24 07:15 Electrolytes, C-Reactive P, ESR: Reviewed DM Control DM Control: Glucose 251 mg/dL (74-106) H 01/21/24 09:15 Finger Stick Blood Glucose 208 1007 Finger Stick Blood Glucose 208 1007 Finger Stick Blood Glucose 254 0904 Finger Stick Blood Glucose 254 0904 Finger Stick Blood Glucose 208 0813 Finger Stick Blood Glucose 208 0813 Finger Stick Blood Glucose 207 0705 Finger Stick Blood Glucose 207 0705 Finger Stick Blood Glucose 219 0606 Finger Stick Blood Glucose 219 0606 Finger Stick Blood Glucose 210 0507 Finger Stick Blood Glucose 210 0507 Finger Stick Blood Glucose 216 0411 Finger Stick Blood Glucose 216 0411 DM Control: Reviewed Insulin Dosing, Diabetic Medication: Has order for insulin infusion currently at 7 units/hr, last increased today at 0915. Per provider will need to remain on insulin drip for at least the rest of today. Cardiac Review Cardiac Review: Troponin I 6 ng/L (<or=76) 01/21/24 03:06 BP, HR, EF%: Reviewed (BP WNL, HR 94 - has been in mid 90s to low 100s this morning) List meds needing interventions: Has order for lisinopril 20mg daily QTc Review QTc: Reviewed (435 from 01/21/24) IV to PO Switch IV Medications: Reviewed (insulin, ondansetron and potassium) Home Meds Home Med List reviewed: Intervened Relevent Home Meds Not ordered & why?: glipizide/metformin (on hold), Rybelsus (on hold) and Jardiance Confirmed patients home med list using [facility]. Asked nurse to check if patient takes Jardiance as this was not on his home med list. Per nurse patient confirmed he does take it. I added it to home med list (Jardiance 25mg daily) and informed provider. Currently no order was put in. Current Meds Current Medication Order Review: Intervened Comments: Added 2nd PRN to ondansetron order per pharmacy protocol Changed pantoprazole timing from 0830 to 0730 per pharmacy protocol Discontinued duplicate potassium infusion order Changed IV access from ED Comments Comments/Follow Ups: Check with provider tomorrow about IV to PO ondansetron
[2024-01-21 11:47] LABS: Anion Gap 16.2 mmol/L (3-11); BUN 10 mg/dL (7-18); CO2 13.8 mmol/L (21.0-32.0); Calcium 8.9 mg/dL (8.5-10.1); Chloride 109 mmol/L (98-107); Estimated GFR 87.24 (mL/min/1.73m2); Glucose 230 mg/dL (74-106); Potassium 3.7 mmol/L (3.5-5.1); Sodium 139 mmol/L (136-145)
[2024-01-21 13:36] LABS: Anion Gap 15.5 mmol/L (3-11); BUN 11 mg/dL (7-18); CO2 13.5 mmol/L (21.0-32.0); Calcium 8.7 mg/dL (8.5-10.1); Chloride 109 mmol/L (98-107); Estimated GFR 87.24 (mL/min/1.73m2); Glucose 260 mg/dL (74-106); Potassium 3.3 mmol/L (3.5-5.1); Sodium 138 mmol/L (136-145)
--- NOTE | 2024-01-21 15:38 | PGE_ITS ---
Date of Service Date of service: 01/21/24 Time of Service: 15:38 Assessment and Plan Assessment and plan (1) Ketoacidosis in patient with type 2 diabetes mellitus: Start date: 01/21/24 Status: Acute Assessment and plan: First episode of DKA in type 2 DM. Seems to have been precipitated by medication changes in setting of worsening control of blood sugar, including addition of SGLT2i which could have contributed as well as stress of travel. Anion gap has been closing today on [place] protocol drip, IV fluids. Continue. BMPs spaced to q 4hr He would like to eat, which is fine. -He will absolutely need insulin at least in the short term, likely indefinitely. Plan to transition to basal/bolus regimen once off drip. He wou ld still likely benefit from GLP-1 and metformin but would avoid [id number] -C-peptide pending so see how much insulin production is occurring naturally -Diabetes education (2) HTN (hypertension): Status: Chronic Assessment and plan: Continue outpatient medical therapy adjusting as needed. (3) Hyperlipidemia: Status: Chronic Assessment and plan: Continue outpatient medical therapy. (4) GERD (gastroesophageal reflux disease): Status: Chronic Assessment and plan: Continue outpatient medical therapy with PPI. Given some pain in epigastrum despite PPI, get lipase. (5) DVT prophylaxis: Status: Acute Assessment and plan: enoxaparin Subjective Subjective Patient reports: no new complaints, feels better and voiding w/o difficulty; denies nausea, shortness of breath or fever Interval history since last seen: No longer nauseous or vomiting. He is hungry, would like to eat. No chest pain. Thinks this was triggered by a change in his medication. In addition to the medicaitons listing on H&P, he was also recently started on empaglaflozin. Exam Narrative Exam Narrative: General: Patient appears appropriate for age, no apparent distress, alert and oriented x 3. HEENT: Normocephalic, MMM Lungs: Clear to auscultation percussion with no focalizing rales or rhonchi, clear breath sounds. Heart: RRR. No murmurs gallops appreciated. Abdomen: O+BS, soft and with mild epigastric tenderness to palpation with no focalizing guarding or rebound. No palpable hepatosplenomegaly. Bowel sounds positive though decreased in all quadrants. Extremities: Without clubbing, cyanosis or pitting edema. Skin: Normal color, warm and dry. Objective Last Vital Signs Temp 37.0 C 01/21/24 12:53 Pulse 88 01/21/24 14:01 Resp 18 01/21/24 14:01 BP 125/69 01/21/24 14:01 Pulse Ox 96 01/21/24 14:01 Laboratory Results - last 24 hr 01/21/24 01/21/24 01/21/24 02:29 02:50 03:06 WBC 13.10 H RBC 5.70 Hgb 16.3 Hct 48.6 MCV 85 MCH 28.6 MCHC 33.5 RDW 12.9 Plt Count 331 MPV 8.9 Immature Gran % 0.0 Neutrophils % 84.0 Lymphocytes % 8.0 Monocytes % 7.0 Eosinophils % 1.0 Basophils % 0.0 Nucleated RBC % 0.0 Absolute Neutrophils 11.00 H Absolute Lymphocytes 1.05 L Absolute Monocytes 0.92 H Absolute Eosinophils 0.13 Absolute Basophils 0.00 RBC Morphology Normal VBG pH 7.07 L* VBG pCO2 24 L VBG pO2 56 VBG HCO3 7 L VBG Total CO2 7 L VBG O2 Saturation 87 VBG Base Excess -23 L VBG Lactate 1.3 Sodium Cancelled 135 L Potassium Cancelled 4.5 Chloride Cancelled 98 Carbon Dioxide Cancelled 9.7 L Anion Gap Cancelled 27.3 H BUN Cancelled 13 Creatinine Cancelled 1.1 Est GFR (CKD-EPI 2020) Cancelled 77.81 Glucose Cancelled 247 H Calcium Cancelled 10.5 H Phosphorus 5.1 H Magnesium Cancelled 2.0 Total Bilirubin Cancelled 0.52 AST Cancelled 17 ALT Cancelled 23 Alkaline Phosphatase Cancelled 89 Troponin I 6 Total Protein Cancelled 9.3 H Albumin Cancelled 5.0 TSH Urine Color Yellow Urine Clarity Clear Urine pH 5.5 Ur Specific Gaffney >= 1.030 H Urine Protein 30 H Urine Ketones 80 H Urine Blood Trace-intact H Urine Nitrite Negative Urine Bilirubin Negative Urine Urobilinogen 0.2 Ur Leukocyte Esterase Negative Urine RBC 3-5 H Urine WBC Negative Ur Epithelial Cells Rare Urine Crystals Negative Urine Bacteria Rare Urine Casts Negative Urine Mucus Negative Ur Culture Indicated? No Urine Glucose 250 H Salicylates 4.4 Acetaminophen < 2 Ethyl Alcohol < 3.0 COVID-19 Source SARS-CoV-2 (PCR) Influenza Type A (PCR) Influenza Type B (PCR) RSV (PCR) 01/21/24 01/21/24 01/21/24 03:45 05:08 06:07 WBC RBC Hgb Hct MCV MCH MCHC RDW Plt Count MPV Immature Gran % Neutrophils % Lymphocytes % Monocytes % Eosinophils % Basophils % Nucleated RBC % Absolute Neutrophils Absolute Lymphocytes Absolute Monocytes Absolute Eosinophils Absolute Basophils RBC Morphology VBG pH VBG pCO2 VBG pO2 VBG HCO3 VBG Total CO2 VBG O2 Saturation VBG Base Excess VBG Lactate Sodium Cancelled 137 Potassium Cancelled 4.6 Chloride Cancelled 103 Carbon Dioxide Cancelled 8.1 L Anion Gap Cancelled 25.9 H BUN Cancelled 13 Creatinine Cancelled 1.0 Est GFR (CKD-EPI 2020) Cancelled 87.24 Glucose Cancelled 234 H Calcium Cancelled 9.0 Phosphorus Magnesium Total Bilirubin AST ALT Alkaline Phosphatase Troponin I Total Protein Albumin TSH Urine Color Urine Clarity Urine pH Ur Specific [place] Urine Protein Urine Ketones Urine Blood Urine Nitrite Urine Bilirubin Urine Urobilinogen Ur Leukocyte Esterase Urine RBC Urine WBC Ur Epithelial Cells Urine Crystals Urine Bacteria Urine Casts Urine Mucus Ur Culture Indicated? Urine Glucose Salicylates 3.3 Acetaminophen Ethyl Alcohol COVID-19 Source Nasopharynx SARS-CoV-2 (PCR) Negative Influenza Type A (PCR) Negative Influenza Type B (PCR) Negative RSV (PCR) Negative 01/21/24 01/21/24 01/21/24 07:15 09:15 11:25 WBC RBC Hgb Hct MCV MCH MCHC RDW Plt Count MPV Immature Gran % Neutrophils % Lymphocytes % Monocytes % Eosinophils % Basophils % Nucleated RBC % Absolute Neutrophils Absolute Lymphocytes Absolute Monocytes Absolute Eosinophils Absolute Basophils RBC Morphology VBG pH VBG pCO2 VBG pO2 VBG HCO3 VBG Total CO2 VBG O2 Saturation VBG Base Excess VBG Lactate Sodium 138 138 139 Potassium 4.2 3.9 3.7 Chloride 105 107 109 H Carbon Dioxide 11.2 L 12.3 L 13.8 L Anion Gap 21.8 H 18.7 H 16.2 H BUN 13 11 10 Creatinine 1.1 1.1 1.0 Est GFR (CKD-EPI 2020) 77.81 77.81 87.24 Glucose 235 H 251 H 230 H Calcium 9.0 8.9 8.9 Phosphorus Magnesium 1.9 Total Bilirubin AST ALT Alkaline Phosphatase Troponin I Total Protein Albumin TSH 1.00 Urine Color Urine Clarity Urine pH Ur Specific [place] Urine Protein Urine Ketones Urine Blood Urine Nitrite Urine Bilirubin Urine Urobilinogen Ur Leukocyte Esterase Urine RBC Urine WBC Ur Epithelial Cells Urine Crystals Urine Bacteria Urine Casts Urine Mucus Ur Culture Indicated? Urine Glucose Salicylates Acetaminophen Ethyl Alcohol COVID-19 Source SARS-CoV-2 (PCR) Influenza Type A (PCR) Influenza Type B (PCR) RSV (PCR) 01/21/24 01/21/24 01/21/24 13:08 13:45 15:45 WBC RBC Hgb Hct MCV MCH MCHC RDW Plt Count MPV Immature Gran % Neutrophils % Lymphocytes % Monocytes % Eosinophils % Basophils % Nucleated RBC % Absolute Neutrophils Absolute Lymphocytes Absolute Monocytes Absolute Eosinophils Absolute Basophils RBC Morphology VBG pH VBG pCO2 VBG pO2 VBG HCO3 VBG Total CO2 VBG O2 Saturation VBG Base Excess VBG Lactate Sodium 138 Cancelled Cancelled Potassium 3.3 L Cancelled Cancelled Chloride 109 H Cancelled Cancelled Carbon Dioxide 13.5 L Cancelled Cancelled Anion Gap 15.5 H Cancelled Cancelled BUN 11 Cancelled Cancelled Creatinine 1.0 Cancelled Cancelled Est GFR (CKD-EPI 2020) 87.24 Cancelled Cancelled Glucose 260 H Cancelled Cancelled Calcium 8.7 Cancelled Cancelled Phosphorus Magnesium Total Bilirubin AST ALT Alkaline Phosphatase Troponin I Total Protein Albumin TSH Urine Color Urine Clarity Urine pH Ur Specific [place] Urine Protein Urine Ketones Urine Blood Urine Nitrite Urine Bilirubin Urine Urobilinogen Ur Leukocyte Esterase Urine RBC Urine WBC Ur Epithelial Cells Urine Crystals Urine Bacteria Urine Casts Urine Mucus Ur Culture Indicated? Urine Glucose Salicylates Acetaminophen Ethyl Alcohol COVID-19 Source SARS-CoV-2 (PCR) Influenza Type A (PCR) Influenza Type B (PCR) RSV (PCR) 01/21/24 01/21/24 01/21/24 17:45 19:45 21:45 WBC RBC Hgb Hct MCV MCH MCHC RDW Plt Count MPV Immature Gran % Neutrophils % Lymphocytes % Monocytes % Eosinophils % Basophils % Nucleated RBC % Absolute Neutrophils Absolute Lymphocytes Absolute Monocytes Absolute Eosinophils Absolute Basophils RBC Morphology VBG pH VBG pCO2 VBG pO2 VBG HCO3 VBG Total CO2 VBG O2 Saturation VBG Base Excess VBG Lactate Sodium Cancelled Cancelled Cancelled Potassium Cancelled Cancelled Cancelled Chloride Cancelled Cancelled Cancelled Carbon Dioxide Cancelled Cancelled Cancelled Anion Gap Cancelled Cancelled Cancelled BUN Cancelled Cancelled Cancelled Creatinine Cancelled Cancelled Cancelled Est GFR (CKD-EPI 2020) Cancelled Cancelled Cancelled Glucose Cancelled Cancelled Cancelled Calcium Cancelled Cancelled Cancelled Phosphorus Magnesium Total Bilirubin AST ALT Alkaline Phosphatase Troponin I Total Protein Albumin TSH Urine Color Urine Clarity Urine pH Ur Specific [place] Urine Protein Urine Ketones Urine Blood Urine Nitrite Urine Bilirubin Urine Urobilinogen Ur Leukocyte Esterase Urine RBC Urine WBC Ur Epithelial Cells Urine Crystals Urine Bacteria Urine Casts Urine Mucus Ur Culture Indicated? Urine Glucose Salicylates Acetaminophen Ethyl Alcohol COVID-19 Source SARS-CoV-2 (PCR) Influenza Type A (PCR) Influenza Type B (PCR) RSV (PCR) 01/21/24 23:45 WBC RBC Hgb Hct MCV MCH MCHC RDW Plt Count MPV Immature Gran % Neutrophils % Lymphocytes % Monocytes % Eosinophils % Basophils % Nucleated RBC % Absolute Neutrophils Absolute Lymphocytes Absolute Monocytes Absolute Eosinophils Absolute Basophils RBC Morphology VBG pH VBG pCO2 VBG pO2 VBG HCO3 VBG Total CO2 VBG O2 Saturation VBG Base Excess VBG Lactate Sodium Cancelled Potassium Cancelled Chloride Cancelled Carbon Dioxide Cancelled Anion Gap Cancelled BUN Cancelled Creatinine Cancelled Est GFR (CKD-EPI 2020) Cancelled Glucose Cancelled Calcium Cancelled Phosphorus Magnesium Total Bilirubin AST ALT Alkaline Phosphatase Troponin I Total Protein Albumin TSH Urine Color Urine Clarity Urine pH Ur Specific [place] Urine Protein Urine Ketones Urine Blood Urine Nitrite Urine Bilirubin Urine Urobilinogen Ur Leukocyte Esterase Urine RBC Urine WBC Ur Epithelial Cells Urine Crystals Urine Bacteria Urine Casts Urine Mucus Ur Culture Indicated? Urine Glucose Salicylates Acetaminophen Ethyl Alcohol COVID-19 Source SARS-CoV-2 (PCR) Influenza Type A (PCR) Influenza Type B (PCR) RSV (PCR) PAWSS Have you Been Recently Intoxicated or Drunk Within the Last 30 days?: No Have you Ever Experienced Previous Episodes of Alcohol Withdrawal?: No Have you ever Experienced Withdrawal Seizures?: No Have you ever Experienced Delirium Tremens(DT)s?: No Have you ever undergone Alcohol Rehabilitation Treatment (i.e, inpt ot outpatient treatment programs)?: No Have you ever Experienced Blackouts?: No Have you ever Combined Alcohol with other Downers within the last 90 days?: No Have you ever Combined Alcohol with any other Substance of Abuse during the last 90 days?: No Positive Blood Alcohol level on Presentation? [PCS.BAL]: No Evidence of Increased Autonomic Activity (i.e. HR>120, tremor, sweating, agitation, nausea)?: No Result: 0 Time Spent with Patient Time Spent with Patient: >50 minutes Time was spent: preparing to see the patient(eg.review tests), obtaining and/or reviewing separately otained hiistory, ordering medications,tests, procedures, referring, communicating with other health career development consultant, indepentently interpreting results, counseling the patient and care coordination
--- NOTE | 2024-01-21 16:38 | CHAPLAIN ---
Kevon was resting in bed when I visited and had two family members with him. He was pleasant and easily engaged in conversation. I explained my role and offered support. Kevon is visiting from [place] and plans to have follow up care there when he returns home.
[2024-01-21] MEDS: POTASSIUM CHLORIDE/D5-0.9%NACL 1,000 ML 250 MEQ IV (17:40)
[2024-01-21] MEDS: Potassium Chloride 20 MEQ TABCR 40 MEQ PO (17:40)
[2024-01-21] MEDS: INSULIN REGULAR IN 0.9 % NACL 100 UNIT/100 ML BAG 8 UNIT IVINF (17:43)
[2024-01-21 17:56] LABS: Anion Gap 9.5 mmol/L (3-11); BUN 9 mg/dL (7-18); CO2 18.5 mmol/L (21.0-32.0); CREATININE 0.9 mg/dL (0.70-1.30); Calcium 8.7 mg/dL (8.5-10.1); Chloride 111 mmol/L (98-107); Glucose 96 mg/dL (74-106); Potassium 3.3 mmol/L (3.5-5.1); Sodium 139 mmol/L (136-145)
[2024-01-21 18:01] LABS: Osmolality Serum 300 mOsm/kg (275-295)
[2024-01-21 18:26] LABS: Lipase 18 U/L (<78)
[2024-01-21 21:28] LABS: Anion Gap 10.1 mmol/L (3-11); BUN 6 mg/dL (7-18); CO2 17.9 mmol/L (21.0-32.0); CREATININE 0.7 mg/dL (0.70-1.30); Calcium 7.5 mg/dL (8.5-10.1); Chloride 113 mmol/L (98-107); Glucose 158 mg/dL (74-106); Potassium 3.1 mmol/L (3.5-5.1); Sodium 141 mmol/L (136-145)
[2024-01-22] VITALS (47 sets, daily range): BP systolic 114–141; BP diastolic 65–92; PULSE 67–100; RESP 9–27; TEMP 36.7–37.7; O2SAT 93–98
[2024-01-22 01:35] LABS: Anion Gap 11.1 mmol/L (3-11); BUN 7 mg/dL (7-18); CO2 18.9 mmol/L (21.0-32.0); CREATININE 0.6 mg/dL (0.70-1.30); Calcium 8.2 mg/dL (8.5-10.1); Chloride 110 mmol/L (98-107); Estimated GFR 111.89 (mL/min/1.73m2); Glucose 110 mg/dL (74-106); Potassium 3.2 mmol/L (3.5-5.1); Sodium 140 mmol/L (136-145)
[2024-01-22] MEDS: Normal Saline Flush 10 ML SYR IVP ×3 (05:34→19:30)
[2024-01-22 06:19] LABS: Abs Immature Grans 0.04 10^3/uL (0.0-0.06); Absolute Basophil Count 0.02 10^3/uL (0.0-0.2); Absolute Eosinophil Count 0.11 10^3/uL (0.0-0.7); Absolute Lymphocyte Count 1.35 10^3/uL (1.2-3.4); Absolute Neutrophil Count 4.55 10^3/uL (1.2-6.7); Basophils % 0.3 %; Eosinophils % 1.6 %; HCT 34.6 % (40.0-50.0); HGB 11.9 g/dL (13.5-17.5); Immature Grans % 0.6 %; Lymphocytes % 19.4 %; MCH 28.3 pg (27.0-33.0); MCHC 34.4 % (32.0-36.0); MCV 82 fL (80-95); Monocytes % 12.9 %; Neutrophils % 65.2 %; Platelet Count 223 10^3/uL (130-400); RDW-SD 38.7 fL; WBC 6.97 10^3/uL (4.4-10.8)
[2024-01-22 06:24] LABS: Magnesium 1.9 mg/dL (1.8-2.4); PHOSPHORUS < 2.0 mg/dL (2.6-4.7)
[2024-01-22 06:36] LABS: ALT 16 U/L (16-63); AST 14 U/L (15-37); Albumin 2.9 g/dL (3.4-5.0); Alkaline Phosphatase 54 U/L (46-116); Bilirubin, Direct 0.1 mg/dL (0.0-0.2); Bilirubin, Total 0.49 mg/dL (0.2-1.0); Total Protein 5.5 g/dL (6.4-8.2)
[2024-01-22] MEDS: Lisinopril 20 MG TAB PO (08:23)
[2024-01-22] MEDS: Atorvastatin 40 MG TAB PO (08:23)
[2024-01-22] MEDS: Aspirin E.C. 81 MG TABEC PO (08:23)
[2024-01-22] MEDS: Enoxaparin 40 MG/0.4 ML SYR SC (08:24)
[2024-01-22] MEDS: Pantoprazole 40 MG TABCR PO (08:24)
--- NOTE | 2024-01-22 08:28 | W.PM.PROGNOT ---
Date of Service Date of service: 01/22/24 Time of Service: 08:28 Assessment and Plan Assessment and plan (1) Ketoacidosis in patient with type 2 diabetes mellitus: Start date: 01/21/24 Status: Acute Assessment and plan: First episode of DKA in type 2 DM. Seems to have been precipitated by medication changes in setting of worsening control of blood sugar, including addition of SGLT2i which could have contributed as well as stress of travel. Anion gap closed last evening, though tecnically borderline this morning he feels well and I think safe to transtion to basal bolus insulin TDD calculated based on the last 4 hours is 50 units/day, which is 0.5U/kg. Will give half as glargine and split the other as bolus with meals with low dose ISS as additional if needed. see below (2) Type 2 diabetes mellitus with insulin deficiency: Status: Acute Assessment and plan: -We again discussed that he will absolutely need insulin at least in the short term, likely indefinitely. - He would still likely benefit from GLP-1 and metformin but would avoid [id number] given their association with DKA, stop sulfonureas -C-peptide pending so see how much insulin production is occurring naturally -Diabetes education, try to get him a CGM, but he will need to be trained in FS glucometer as well. Make sure he has all meds and needles and monitor in hand and is trained to use them before discharge. (3) HTN (hypertension): Status: Chronic Assessment and plan: Continue outpatient medical therapy adjusting as needed. (4) Hyperlipidemia: Status: Chronic Assessment and plan: Continue outpatient medical therapy. (5) GERD (gastroesophageal reflux disease): Status: Chronic Assessment and plan: Continue outpatient medical therapy with PPI. Given some pain in epigastrum despite PPI yesterday, lipase done which was reassuring. (6) Hypokalemia: Status: Acute Assessment and plan: replace orally (7) DVT prophylaxis: Status: Acute Assessment and plan: enoxaparin Subjective Subjective Patient reports: feels better, tolerating a regular diet and voiding w/o difficulty; denies diarrhea, nausea, vomiting, shortness of breath or fever Interval history since last seen: Has been on drip overnight. He feels better today. No pain. He is hungry, has been taking clears but feels like he could eat. Exam Narrative Exam Narrative: General: Patient appears appropriate for age, no apparent distress, alert and oriented x 3. HEENT: MMM Lungs: Clear to auscultation percussion with no focalizing rales or rhonchi, clear breath sounds. Heart: RRR. No murmurs gallops appreciated. Abdomen: O+BS, soft and with no tenderness to palpation. Extremities: Without clubbing, cyanosis or pitting edema. Objective Last Vital Signs Temp 37.7 C H 01/22/24 03:27 Pulse 72 01/22/24 06:29 Resp 14 01/22/24 06:00 BP 118/70 01/22/24 06:29 Pulse Ox 97 01/22/24 06:29 Laboratory Results - last 24 hr 01/21/24 01/21/24 01/21/24 09:15 11:25 13:08 WBC RBC Hgb Hct MCV MCH MCHC RDW Plt Count MPV Immature Gran % Neutrophils % Lymphocytes % Monocytes % Eosinophils % Basophils % Nucleated RBC % Absolute Neutrophils Absolute Lymphocytes Absolute Monocytes Absolute Eosinophils Absolute Basophils Sodium 138 139 138 Potassium 3.9 3.7 3.3 L Chloride 107 109 H 109 H Carbon Dioxide 12.3 L 13.8 L 13.5 L Anion Gap 18.7 H 16.2 H 15.5 H BUN 11 10 11 Creatinine 1.1 1.0 1.0 Est GFR (CKD-EPI 2020) 77.81 87.24 87.24 Glucose 251 H 230 H 260 H Calcium 8.9 8.9 8.7 Phosphorus Magnesium Total Bilirubin Conjugated Bilirubin AST ALT Alkaline Phosphatase Total Protein Albumin Lipase 01/21/24 01/21/24 01/21/24 13:45 15:45 17:38 WBC RBC Hgb Hct MCV MCH MCHC RDW Plt Count MPV Immature Gran % Neutrophils % Lymphocytes % Monocytes % Eosinophils % Basophils % Nucleated RBC % Absolute Neutrophils Absolute Lymphocytes Absolute Monocytes Absolute Eosinophils Absolute Basophils Sodium Cancelled Cancelled 139 Potassium Cancelled Cancelled 3.3 L Chloride Cancelled Cancelled 111 H Carbon Dioxide Cancelled Cancelled 18.5 L Anion Gap Cancelled Cancelled 9.5 BUN Cancelled Cancelled 9 Creatinine Cancelled Cancelled 0.9 Est GFR (CKD-EPI 2020) Cancelled Cancelled 99.00 Glucose Cancelled Cancelled 96 Calcium Cancelled Cancelled 8.7 Phosphorus Magnesium Total Bilirubin Conjugated Bilirubin AST ALT Alkaline Phosphatase Total Protein Albumin Lipase 18 01/21/24 01/21/24 01/21/24 17:45 19:45 21:09 WBC RBC Hgb Hct MCV MCH MCHC RDW Plt Count MPV Immature Gran % Neutrophils % Lymphocytes % Monocytes % Eosinophils % Basophils % Nucleated RBC % Absolute Neutrophils Absolute Lymphocytes Absolute Monocytes Absolute Eosinophils Absolute Basophils Sodium Cancelled Cancelled 141 Potassium Cancelled Cancelled 3.1 L Chloride Cancelled Cancelled 113 H Carbon Dioxide Cancelled Cancelled 17.9 L Anion Gap Cancelled Cancelled 10.1 BUN Cancelled Cancelled 6 L Creatinine Cancelled Cancelled 0.7 Est GFR (CKD-EPI 2020) Cancelled Cancelled 106.80 Glucose Cancelled Cancelled 158 H Calcium Cancelled Cancelled 7.5 L Phosphorus Magnesium Total Bilirubin Conjugated Bilirubin AST ALT Alkaline Phosphatase Total Protein Albumin Lipase 01/21/24 01/21/24 01/22/24 21:45 23:45 01:16 WBC RBC Hgb Hct MCV MCH MCHC RDW Plt Count MPV Immature Gran % Neutrophils % Lymphocytes % Monocytes % Eosinophils % Basophils % Nucleated RBC % Absolute Neutrophils Absolute Lymphocytes Absolute Monocytes Absolute Eosinophils Absolute Basophils Sodium Cancelled Cancelled 140 Potassium Cancelled Cancelled 3.2 L Chloride Cancelled Cancelled 110 H Carbon Dioxide Cancelled Cancelled 18.9 L Anion Gap Cancelled Cancelled 11.1 H BUN Cancelled Cancelled 7 Creatinine Cancelled Cancelled 0.6 L Est GFR (CKD-EPI 2020) Cancelled Cancelled 111.89 Glucose Cancelled Cancelled 110 H Calcium Cancelled Cancelled 8.2 L Phosphorus Magnesium Total Bilirubin Conjugated Bilirubin AST ALT Alkaline Phosphatase Total Protein Albumin Lipase 01/22/24 05:35 WBC 6.97 RBC 4.20 L Hgb 11.9 L D Hct 34.6 L MCV 82 MCH 28.3 MCHC 34.4 RDW 13.0 Plt Count 223 MPV 9.0 Immature Gran % 0.6 Neutrophils % 65.2 Lymphocytes % 19.4 Monocytes % 12.9 Eosinophils % 1.6 Basophils % 0.3 Nucleated RBC % 0.0 Absolute Neutrophils 4.55 Absolute Lymphocytes 1.35 Absolute Monocytes 0.90 H Absolute Eosinophils 0.11 Absolute Basophils 0.02 Sodium Potassium Chloride Carbon Dioxide Anion Gap BUN Creatinine Est GFR (CKD-EPI 2020) Glucose Calcium Phosphorus < 2.0 L Magnesium 1.9 Total Bilirubin 0.49 Conjugated Bilirubin 0.1 AST 14 L ALT 16 Alkaline Phosphatase 54 Total Protein 5.5 L Albumin 2.9 L Lipase PAWSS Have you Been Recently Intoxicated or Drunk Within the Last 30 days?: No Have you Ever Experienced Previous Episodes of Alcohol Withdrawal?: No Have you ever Experienced Withdrawal Seizures?: No Have you ever Experienced Delirium Tremens(DT)s?: No Have you ever undergone Alcohol Rehabilitation Treatment (i.e, inpt ot outpatient treatment programs)?: No Have you ever Experienced Blackouts?: No Have you ever Combined Alcohol with other Downers within the last 90 days?: No Have you ever Combined Alcohol with any other Substance of Abuse during the last 90 days?: No Positive Blood Alcohol level on Presentation? [PCS.BAL]: No Evidence of Increased Autonomic Activity (i.e. HR>120, tremor, sweating, agitation, nausea)?: No Result: 0 Time Spent with Patient Time Spent with Patient: >50 minutes Time was spent: preparing to see the patient(eg.review tests), obtaining and/or reviewing separately otained hiistory, ordering medications,tests, procedures, referring, communicating with other health clinical manager home care, indepentently interpreting results, counseling the patient and care coordination
[2024-01-22] MEDS: Potassium Chloride 20 MEQ TABCR 40 MEQ PO ×3 (09:22→19:29)
[2024-01-22] MEDS: Insulin Glargine 300 UNITS/3 ML PEN 25 UNITS SC (09:26)
--- NOTE | 2024-01-22 09:32 | PHA.REVIEW2 ---
Pharmacy Admission Review Admission Clinical Review Admission Pharmacy Review: Hypokalemia (Acute) Type 2 diabetes mellitus with insulin deficiency (Acute) DVT prophylaxis (Acute) Ketoacidosis in patient with type 2 diabetes mellitus (Acute) No Known Drug Allergies Allergy (Unknown, Verified 01/21/24 02:11) Other (See Comment) Resuscitation Status Full Code Height 5 ft 10 in Weight 98.9 kg Comments Comments/Follow Ups: Trend Blood glucose and diabetes control, electrolytes. Type-2 Diabetic, non-insulin dependent prior to admission, may require insulin at home upon discharge, possible CGM (this is his 1st episode of DKA). Will have some med changes at discharge and diabetes education Pharmacy Admission Review Renal Dosing Renal Dosing: BUN 7 mg/dL (7-18) 01/22/24 01:16 Creatinine 0.6 mg/dL (0.70-1.30) L 01/22/24 01:16 CrCl~158ml/min Medications needing adjustments: N/A Anticoagulation Anticoagulation: Hgb 11.9 g/dL (13.5-17.5) L D 01/22/24 05:35 Hct 34.6 % (40.0-50.0) L 01/22/24 05:35 Plt Count 223 10^3/uL (130-400) 01/22/24 05:35 Creatinine 0.6 mg/dL (0.70-1.30) L 01/22/24 01:16 DVT Prophylaxis: Reviewed Medications: Enoxaparin Opiate Usage Evaluate Pain Scale/Pains Meds: N/A Relevant Labs Relevant Labs: Sodium 140 mmol/L (136-145) 01/22/24 01:16 Potassium 3.2 mmol/L (3.5-5.1) L 01/22/24 01:16 Chloride 110 mmol/L (98-107) H 01/22/24 01:16 Phosphorus < 2.0 mg/dL (2.6-4.7) L 01/22/24 05:35 Magnesium 1.9 mg/dL (1.8-2.4) 01/22/24 05:35 IVF's with KCL changed over to oral K+ 40meq po TID Electrolytes, C-Reactive P, ESR: Reviewed (Phos dipped < 2.0, may need supplement) DM Control DM Control: Reviewed (BG 110, better controlled, was 247 on admission, not able to locate his HgA1C in records) Insulin Dosing, Diabetic Medication: Lantus, aspart scheduled plus scale, weaning off insulin drip this morning Cardiac Review Cardiac Review: Troponin I 6 ng/L (<or=76) 01/21/24 03:06 BP, HR, EF%: Reviewed (BP 126/77, HR 79, on Lisinopril 20mg daily) QTc Review QTc: Reviewed (QTC 435-no meds of concern, does have Zofran ordered IVP prn) Home Meds Home Med List reviewed: Reviewed Relevent Home Meds Not ordered & why?: Jardiance, Glipizide/Metformin, Rybelsus Current Meds Current Medication Order Review: Reviewed Comments Comments/Follow Ups: Trend Blood glucose and diabetes control, electrolytes. Type-2 Diabetic, non-insulin dependent prior to admission, may require insulin at home upon discharge, possible CGM (this is his 1st episode of DKA). Will have some med changes at discharge and diabetes education
[2024-01-22] MEDS: Insulin Aspart 300 UNITS/3 ML PEN SC ×2 (12:05→17:23)
[2024-01-22] MEDS: Insulin Aspart 300 UNITS/3 ML PEN 7 UNITS SC ×2 (12:05→17:21)
[2024-01-22 17:11] LABS: Anion Gap 10.9 mmol/L (3-11); BUN 10 mg/dL (7-18); CO2 21.1 mmol/L (21.0-32.0); CREATININE 0.7 mg/dL (0.70-1.30); Calcium 8.3 mg/dL (8.5-10.1); Chloride 106 mmol/L (98-107); Glucose 185 mg/dL (74-106); Potassium 3.6 mmol/L (3.5-5.1); Sodium 138 mmol/L (136-145)
[2024-01-23] VITALS (17 sets, daily range): BP systolic 126–145; BP diastolic 71–95; PULSE 66–101; RESP 13–25; TEMP 36.4–37; O2SAT 94–97
[2024-01-23 06:13] LABS: HCT 36.4 % (40.0-50.0); HGB 12.7 g/dL (13.5-17.5); MCH 28.5 pg (27.0-33.0); MCHC 34.9 % (32.0-36.0); MCV 82 fL (80-95); MPV 9.3 fL (8.0-11.0); Platelet Count 199 10^3/uL (130-400); RBC 4.46 10^6/uL (4.36-5.78); RDW 12.7 % (11.8-14.1); RDW-SD 37.7 fL; WBC 5.15 10^3/uL (4.4-10.8)
[2024-01-23 06:26] LABS: Anion Gap 9.8 mmol/L (3-11); BUN 8 mg/dL (7-18); CO2 21.2 mmol/L (21.0-32.0); CREATININE 0.5 mg/dL (0.70-1.30); Calcium 8.4 mg/dL (8.5-10.1); Chloride 106 mmol/L (98-107); Estimated GFR 118.23 (mL/min/1.73m2); Glucose 220 mg/dL (74-106); Potassium 3.6 mmol/L (3.5-5.1); Sodium 137 mmol/L (136-145)
[2024-01-23 06:32] LABS: ALT 25 U/L (16-63); AST 19 U/L (15-37); Albumin 2.8 g/dL (3.4-5.0); Alkaline Phosphatase 59 U/L (46-116); Bilirubin, Direct 0.1 mg/dL (0.0-0.2); Bilirubin, Total 0.39 mg/dL (0.2-1.0); Total Protein 5.6 g/dL (6.4-8.2)
[2024-01-23 06:33] LABS: Magnesium 1.8 mg/dL (1.8-2.4); PHOSPHORUS 2.7 mg/dL (2.6-4.7)
[2024-01-23] MEDS: Enoxaparin 40 MG/0.4 ML SYR SC (08:02)
[2024-01-23] MEDS: Insulin Glargine 300 UNITS/3 ML PEN 25 UNITS SC (08:02)
[2024-01-23] MEDS: Insulin Aspart 300 UNITS/3 ML PEN SC (08:03)
[2024-01-23] MEDS: Insulin Aspart 300 UNITS/3 ML PEN 7 UNITS SC (08:03)
[2024-01-23] MEDS: Pantoprazole 40 MG TABCR PO (08:04)
[2024-01-23] MEDS: Potassium Chloride 20 MEQ TABCR 40 MEQ PO (08:04)
[2024-01-23] MEDS: Lisinopril 20 MG TAB PO (08:04)
[2024-01-23] MEDS: Atorvastatin 40 MG TAB PO (08:04)
[2024-01-23] MEDS: Aspirin E.C. 81 MG TABEC PO (08:04)
[2024-01-23] MEDS: Normal Saline Flush 10 ML SYR IVP (08:05)
--- NOTE | 2024-01-23 11:03 | W.PM.DS.N ---
Date of service: 01/23/24 Time of Service: 11:03 DS: Diagnosis Discharge Diagnosis (1) Ketoacidosis in patient with type 2 diabetes mellitus: Status: Acute (2) Type 2 diabetes mellitus with insulin deficiency: Status: Acute (3) HTN (hypertension): Status: Chronic (4) Hyperlipidemia: Status: Chronic (5) GERD (gastroesophageal reflux disease): Status: Chronic (6) Hypokalemia: Status: Acute (7) DVT prophylaxis: Status: Acute Discharge Plan Disposition Patient Disposition: Home Condition: Good Discharge Details Reason For Visit: DKA Admit Date/Time: 01/21/24 04:31 Admit Provider: Kannan Sears Attending Provider: Kannan Sears [facility]: 58 yo M with history of type 2 DM on metformin, glipizide, oral semaglutide, and new empagliflozin who presented with sudden onset abdominal cramping pain and nausea and was found to be in DKA. He was bolused with IV fluids and started on insulin drip with the Alexa protocol. His anion gap closed over the course of his first day of admission and stayed stable overnight. He was allowed clears prior to stopping insulin drip and he did well. On the morning of 01/21 he was given basal/bolus insulin and a regular diet and the drip was stopped. He was given education on the use of basal/bolus insulin. Though not noted in the HPI, he had recented started empagliflozin (Jardiance) and it was recommend he avoid this given association with DKA. Glipizide was also stopped. He can continue GLP-1 and metformin along with insluin for metabolic and cardiac benefits along with blood sugar control. Dexcom CGM was prescribed given new insulin dependance and associated risk of hypoglycemia. On the , the pt asked to be discharged to which we readily agreed. Pt's anion gap has normalized and his blood glucose readings have been appropriate. Home Meds and New Rx's Prescriptions: New (DME) Dexcom G7 Sensor Device See Rx Instructions .Route Qty: 3 12RF Rx Instructions: place every 10 days directed insulin aspart U-100 100 unit/mL (3 mL) Insulin Pen 7 unit subcut 0800,1200,1700 Qty: 15 0RF insulin aspart U-100 100 unit/mL (3 mL) Insulin Pen 1 sliding scale dose subcut 0800,1200,1700 Qty: 15 0RF Rx Instructions: blood glucose-100/4= insulin dose insulin glargine [Lantus Solostar U-100 Insulin] 100 unit/mL (3 mL) Insulin Pen 25 unit subcut DAILY Qty: 15 0RF Continued aspirin [Ecotrin Low Strength] 81 mg tablet,delayed release (DR/EC) 81 mg PO DAILY pantoprazole [Protonix] 40 mg tablet,delayed release (DR/EC) 40 mg PO DAILY lisinopril 20 mg tablet 20 mg PO DAILY atorvastatin 40 mg tablet 40 mg PO DAILY Rybelsus 7 mg tablet 14 mg PO DAILY Discontinued glipizide-metformin 2.5-500 mg tablet 2 tab PO BID Jardiance 25 mg tablet 25 mg PO DAILY Discharge Instructions Instructions: Insulin Injection, Diabetic Ketoacidosis (DC) Activity:: Activity as Tolerated Equipment/Supplies:: Blood Glucose Monitor Diet:: Carb Counting DS: Summary Time Spent with Patient providing and/or coordinating discharge services: Greater than 30 minutes Status at Discharge Functional status at discharge: independent ambulation Overall status at discharge: patient is back to baseline Mental Status: mental status grossly normal Speech and Movement: speech and movement normal Mood: congruent mood Affect: normal affect Quality:SDOH Health Related Social Needs: No Data to Display Exam Narrative Exam Narrative: General: Patient appears appropriate for age, no apparent distress, alert and oriented x 3. HEENT: MMM Lungs: Clear to auscultation percussion with no focalizing rales or rhonchi, clear breath sounds. Heart: RRR. No murmurs gallops appreciated. Abdomen: O+BS, soft and with no tenderness to palpation. Extremities: Without clubbing, cyanosis or pitting edema. Psych Mental Status: mental status grossly normal Speech and Movement: speech and movement normal Mood: congruent mood Affect: normal affect DS: Data Vitals/I&O Vitals and I&O: Vital Signs Temperature 37.0 C 01/23/24 08:01 Temperature Source Temporal Artery Scan 01/22/24 08:00 Pulse 86 01/23/24 08:01 Pulse 88 01/23/24 08:01 Respiratory Rate 20 01/23/24 08:01 Respiratory Effort Normal 01/21/24 06:40 Respiratory Depth Normal 01/21/24 06:40 Respiratory Pattern Normal 01/21/24 06:40 Blood Pressure 145/95 H 01/23/24 08:01 Blood Pressure Mean 111 01/23/24 08:01 Blood Pressure Position Sitting 01/21/24 06:40 Pulse Oximetry 96 01/23/24 08:01 Oxygen Delivery Method Room Air 01/22/24 08:00 Oxygen Flow Rate 0 01/22/24 08:00 Pain Level 0 01/21/24 21:04 Intake & Output 01/22/24 01/22/24 01/23/24 11:59 23:59 11:59 Intake Total 1289.042 / 2139.042 850 / 2139.042 500 / 500 Output Total 1200 / 3625 2425 / 3625 925 / 925 Balance 89.042 / -1485.958 -1575 / -1485.958 -425 / -425 Weight 98.9 kg Intake: IV 809.042 / 809.042 Oral 480 / 1330 850 / 1330 500 / 500 Output: Urine 1200 / 3625 2425 / 3625 925 / 925 Other: Urine Color Light Irma Yellow Yellow Urine Appearance Clear Clear Clear Urine Odor None None None Data Completed and Pending Labs on day of discharge: Labs from last 24 hours 01/23/24 01/22/24 05:48 16:45 WBC 5.15 RBC 4.46 Hgb 12.7 L Hct 36.4 L MCV 82 MCH 28.5 MCHC 34.9 RDW 12.7 Plt Count 199 MPV 9.3 Sodium 137 138 Potassium 3.6 3.6 Chloride 106 106 Carbon Dioxide 21.2 21.1 Anion Gap 9.8 10.9 BUN 8 10 Creatinine 0.5 L 0.7 Est GFR (CKD-EPI 2020) 118.23 106.80 Glucose 220 H 185 H Calcium 8.4 L 8.3 L Phosphorus 2.7 Magnesium 1.8 Total Bilirubin 0.39 Conjugated Bilirubin 0.1 AST 19 ALT 25 Alkaline Phosphatase 59 Total Protein 5.6 L Albumin 2.8 L PFSH All Active Problems (Updated 01/22/24 @ 14:30 by Fred Barakat) Hypokalemia (Acute) Type 2 diabetes mellitus with insulin deficiency (Acute) DVT prophylaxis (Acute) GERD (gastroesophageal reflux disease) (Chronic) Hyperlipidemia (Chronic) HTN (hypertension) (Chronic) Ketoacidosis in patient with type 2 diabetes mellitus (Acute ~01/22/24) Social History Smoking/Tobacco Use Status: Current-Occasional Tobacco Type: smokeless tobacco Smoking risk assessment performed?: Yes Alcohol Intake: current Alcohol Intake frequency: a few times a month Alcohol type: beer Drug use: Never Substance use type: does not use Housing: house Time Spent with Patient Time Spent with Patient: 45-69 minutes Time was spent: preparing to see the patient(eg.review tests), obtaining and/or reviewing separately otained hiistory, ordering medications,tests, procedures, referring, communicating with other health home care administrator, indepentently interpreting results, counseling the patient and care coordination
[2024-01-24 10:54] LABS: C-Peptide 0.6 ng/mL (1.1 - 4.4)
== END 2024-01-23 11:40 | disposition home or self-care (01) | DRG 639 ==
LOC: ER 06:21 → ICU 06:39
PROVIDERS: Family Medicine; Admitting Provider Family Medicine; Emergency Provider Student in an Organized Health Care Education/Training Program; Visit Provider Family Medicine
DX: E11.10 Type 2 diabetes mellitus with ketoacidosis without coma (principal); E78.2 Mixed hyperlipidemia; I10 Essential (primary) hypertension; K21.9 Gastro-esophageal reflux disease without esophagitis; E87.6 Hypokalemia; Z79.84 Long term (current) use of oral hypoglycemic drugs; F17.220 Nicotine dependence, chewing tobacco, uncomplicated
CPT/HCPCS: 00123; 36415; 36416; 80048; 80053; 80076; 82805; 82962; 83690; 85027; 87637; 93005; 96361; 96365; 96366; 96374; 99291; J1650; 80320; 80329; 81003; 81015; 83605; 83735; 83930; 84100; 84443; 84484; 84681; 85025; 93010; 99223; 99233; 99239; J1815; J2405; J2470